=== PATIENT | female | born 1975 | race Caucasian/White ===

== ENCOUNTER → 2019-12-31 09:22 | Outpatient (BNVA) | payer OTHER, SELFPAY | PROVIDERS: PCP Internal Medicine; Referring Provider Internal Medicine; Visit Provider Advanced Practice Midwife | DX: Z76.89 Persons encountering health services in other specified circumstances (principal) ==

== ENCOUNTER 2020-02-20 14:33 | Outpatient (REF) | payer OTHER, SELFPAY | END 2020-02-20 14:34 | disposition home or self-care (01) | LOC: HO.LAB 14:33 | PROVIDERS: Visit Provider Internal Medicine | DX: Z20.828 Contact with and (suspected) exposure to other viral communicable diseases (principal) | CPT/HCPCS: C9803; U0003 ==

== ENCOUNTER 2020-03-20 09:45 | Outpatient (REF) | payer OTHER, SELFPAY ==
--- NOTE | 2020-03-20 09:51 | MM_ITS ---
EXAMINATION: MM SCREENING DIGITAL BREAST TOMOSYNTHESIS, BILATERAL CLINICAL INFORMATION: Screening. Asymptomatic. The lifetime risk of breast cancer based on the Tyrer-Cuzick Model is 16%. COMPARISON: Mammography: 03/15/2019, 01/23/2018, 07/18/2017, 03/02/2016 TECHNIQUE: Digital breast tomosynthesis is performed in both the craniocaudal and mediolateral oblique views along with computer-aided detection (CAD). Synthesized 2D images are generated from the tomosynthesis. FINDINGS: The breasts are heterogeneously dense, which may obscure small masses (ACR BI-RADS breast composition Category c). There is no developing density or interval mass or architectural abnormality. There are scattered calcifications left breast similar to prior studies. The bilateral axilla and skin contours are unremarkable. The right breast has punctate calcifications anterior medial aspect on CC view questionably increased versus superimposed digital processing artifact. The right breast also has punctate calcifications right breast posterior 3:00 position, possibly related to vascular calcification. Patient will be recalled for additional magnification views right breast. MM/MM tomosynthesis screening BI IMPRESSION: 1. Right: Calcifications anterior medial right breast and posterior 3:00 right breast. 2. Left: No mammographic evidence of malignancy. ASSESSMENT: BI-RADS 0: Incomplete - Need Additional Imaging Evaluation RECOMMENDATION: 1. Additional views of the right breast for 2 areas of calcification (magnification CC, magnification ML). 2. Radiology department staff will contact the patient for additional imaging. This patient's information was entered into a reminder system with a target due date for their next mammogram.
== END 2020-03-20 09:46 | disposition home or self-care (01) ==
LOC: HO.MAMMO 09:45
PROVIDERS: Visit Provider Internal Medicine
DX: Z12.31 Encounter for screening mammogram for malignant neoplasm of breast (principal)
CPT/HCPCS: 77063; 77067

== ENCOUNTER 2020-04-23 13:13 | Outpatient (REF) | payer OTHER, SELFPAY ==
--- NOTE | ~2020-04-23 | MM_ITS ---
EXAMINATION: MM DIAGNOSTIC DIGITAL MAMMOGRAPHY, RIGHT CLINICAL INFORMATION: Recall from screening for questionable increased calcifications anterior medial right breast and for calcifications posterior upper outer right breast. COMPARISON: Mammography: 03/30/2020, 03/15/2019, 01/23/2018. TECHNIQUE: Digital mammography is performed in the following views: Magnification CC, magnification ML x2. FINDINGS: The breasts are heterogeneously dense, which may obscure small masses (ACR BI-RADS breast composition Category c). The additional views show the calcifications anterior medial right breast are stable when compared with prior magnification views in 2019 and 2017. These are considered benign and without change. The calcifications posterior outer right breast were not previously under surveillance. They are uniform round and tightly grouped on CC view but without focal grouping appreciated on the ML views. This group will be reassessed again with diagnostic mammography in 6 months. Results are discussed with the patient at time of visit. MM/MM added views RT IMPRESSION: 1. Calcifications anterior medial right breast are stable when compared with prior magnification views 2019 and 2017. These are considered benign. 2. Calcifications posterior outer right breast are probably benign, no grouping appreciated on ML views. Recommend follow-up imaging in 6 months. ASSESSMENT: BI-RADS 3: Probably Benign RECOMMENDATION: Diagnostic right mammography in 6 months. This patient's information was entered into a reminder system with a target due date for their next mammogram.
== END 2020-04-23 13:14 | disposition home or self-care (01) ==
LOC: HO.MAMMO 13:13
PROVIDERS: Visit Provider Internal Medicine
DX: R92.1 Mammographic calcification found on diagnostic imaging of breast (principal)
CPT/HCPCS: 77065

== ENCOUNTER 2021-03-23 12:52 | Outpatient (REF) | payer OTHER, SELFPAY ==
--- NOTE | ~2021-03-23 | MM_ITS ---
EXAMINATION: MM DIAGNOSTIC DIGITAL BREAST TOMOSYNTHESIS, BILATERAL CLINICAL INFORMATION: Due for yearly. Probable benign calcifications posterior outer right breast for follow-up. The lifetime risk of breast cancer based on the Tyrer-Cuzick Model is 15%. COMPARISON: Mammography: 04/23/2020, 03/20/2020 (BI-RADS 0), 03/15/2019, 01/23/2018 TECHNIQUE: Digital breast tomosynthesis is performed in both the craniocaudal and mediolateral oblique views along with computer-aided detection (CAD). Synthesized 2D images are generated from the tomosynthesis. Magnification right CC x2, magnification right ML x2. FINDINGS: The breasts are heterogeneously dense, which may obscure small masses (ACR BI-RADS breast composition Category c). There are no significant masses, abnormal calcifications, or other abnormalities. Parenchymal pattern is similar to prior studies. No developing density or interval mass or architectural abnormality. There are scattered calcifications in both breasts. The calcifications for follow-up posterior outer right breast are less conspicuous, possibly decreased. No interval suspicious changes. Results are provided to the patient at time of visit by the technologist. MM/MM tomosynthesis diagnostic BI IMPRESSION: No mammographic evidence of malignancy. Probable benign calcifications posterior outer right breast left conspicuous, likely decreased. ASSESSMENT: BI-RADS 3: Probably Benign RECOMMENDATION: Diagnostic mammography at time of next annual exam, due in 12 months. This patient's information was entered into a reminder system with a target due date for their next mammogram.
== END 2021-03-23 12:53 | disposition home or self-care (01) ==
LOC: HO.MAMMO 12:52
PROVIDERS: PCP Internal Medicine; Visit Provider Internal Medicine
DX: R92.1 Mammographic calcification found on diagnostic imaging of breast (principal)
CPT/HCPCS: 77062; 77066

== ENCOUNTER 2022-03-25 13:28 | Outpatient (REF) | payer OTHER, SELFPAY ==
--- NOTE | ~2022-03-25 | MM_ITS ---
EXAMINATION: MM DIAGNOSTIC DIGITAL BREAST TOMOSYNTHESIS, BILATERAL CLINICAL INFORMATION: Due for yearly. Probable benign calcifications posterior outer right breast for follow-up. The lifetime risk of breast cancer based on the Tyrer-Cuzick Model is 15%. COMPARISON: Mammography: 03/23/2021, 04/23/2020, 03/20/2020 (BI-RADS 0), 03/15/2019, 01/23/2018 TECHNIQUE: Digital breast tomosynthesis is performed in both the craniocaudal and mediolateral oblique views along with computer-aided detection (CAD). Synthesized 2D images are generated from the tomosynthesis. Additional right magnification CC x2 and right magnification ML x3 views are obtained. FINDINGS: The breasts are heterogeneously dense, which may obscure small masses (ACR BI-RADS breast composition Category c). Breast parenchymal pattern is similar to prior exams and there is no developing density or interval mass or architectural abnormality. The axilla and skin contours are unremarkable. Again, there are scattered bilateral chronic calcifications similar to previous studies. The right breast calcifications for follow-up are stable to decreased. There is no increasing calcifications in this area or ductal distribution. Calcifications are now considered to be benign. Results are provided to the patient at time of visit by the technologist. MM/MM tomosynthesis diagnostic BI IMPRESSION: -No mammographic evidence of malignancy. -Calcifications for follow-up posterior outer right breast are stable to decreased and now considered to be benign. ASSESSMENT: BI-RADS 2: Benign RECOMMENDATION: Routine annual mammography screening. This patient's information was entered into a reminder system with a target due date for their next mammogram.
== END 2022-03-25 13:29 | disposition home or self-care (01) ==
LOC: HO.MAMMO 13:28
PROVIDERS: Visit Provider Internal Medicine
DX: R92.1 Mammographic calcification found on diagnostic imaging of breast (principal)
CPT/HCPCS: 77062; 77066

== ENCOUNTER 2022-10-28 10:54 | Outpatient (AMB) | payer OTHER, SELFPAY ==
--- NOTE | 2022-10-28 10:55 | A.OFFVIS_ITS ---
Intake Vital Signs 10/28/22 10:56 Height 5 ft Weight 138 lb BMI 26.9 BP 110/62 Intake Visit Reasons: New patient Annual Intake Note: The patient agreed to use of a medical education coordinator during this encounter. Scribed for KALPANA Kline by Merle Mac medical education coordinator, on 10/28/2022 at 11:07am EST. Reefer Engineer Required: No Information Interpreted: non-clinical & clinical Vocal Music Teacher: Vocal Music Teacher Present (Angie) Allergies No Known Allergies [No Known Allergies*] Allergy (Verified 10/28/22 10:59) Is last menstrual period known: Yes Last menstrual period: 10/14/22 Post menopausal: Yes Patient : No HPI HPI Comments History of Present Illness Details She is a premenopausal woman presenting for annual exam. Doing well with no ob gyn physician assistant concerns. She admits to eating healthy and tries to stay active with exercise. Currently sexually active. Partner has vasectomy. Regular monthly periods that are slightly spacing out. Denies vaginal itching and irritation. STD screening offered; she declines. Denies family hx of colon and ovarian cancer. Last pap smear 11/21/17. Last mammogram 03/25/22. UTD with colonoscopy; normal. 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 Female Reproductive History Menstrual Age of Menarche: 10 Duration of menses: 3-5 days Date of last menstrual period: 10/14/22 control method: other (Vasectomy) Total pregnancies: 2 Full term: 2 Number of Living Children: 2 Date of last pap smear: 11/21/17 (neg pap and hpv) Date of Mammogram: 03/25/22 (Birad 2) Physical Exam Vital Signs: Last Vital Signs BP 110/62 10/28/22 10:56 BMI result Body Mass Index 26.9 Const General: cooperative, healthy appearing, no acute distress, well developed and alert Orientation/consciousness: patient oriented x3 HEENT Head: Yes normal to inspection Eyes General: appearance normal, both eyes and all related structures Neck Neck: Yes normal visual inspection Thyroid: Thyroid normal Chest Chest palpation & inspection: normal inspection of the chest Breast/axilla inspection: normal inspection of the breasts (no puckering, dimpling, peau de orange, retraction, discharge, masses) Breast/axilla palpation: normal palpation of the breasts Resp Effort & Inspection: normal respiratory effort GI Inspection: Yes normal to inspection Palpation (GI): Soft to palpation (to palpation) Rectal Exam - Female: deferred General: Yes bladder normal to inspection External Female Exam: normal external appearance and normal appearance of the urethra Speculum Exam - Vagina: normal appearance of the vagina, normal palpation and normal vaginal discharge Speculum Exam - Cervix: normal appearance of the cervix, normal palpation and Other cervical findings present (bled with pap) Bimanual exam- vagina & uterus: normal palpation and normal palpation Bimanual Exam- Adnexa, other: normal adnexae and no masses Skin General skin exam: no rashes or lesions noted Neuro General: patient oriented x3 Cognition (Neuro): normal cognition Extrem General: Yes normal to inspection Psych Attitude: cooperative Thought process: Normal thought process present Assessment & Plan Assessment & Plan (1) Encounter for well woman exam: Code(s): Z01.419 - Encounter for gynecological examination (general) (routine) without abnormal findings Plan: Discussed: Current recommendations for pap smears per ASCCP guidelines Breast awareness and periodic self breast exams. Maintaining a healthy lifestyle including a well balanced diet and routine exercise. Perimenopause changes. Cycle patterns: when to carlos for any abnormal bleeding, <3 wks. apart or heavy, prolonged bleeding. All of her questions and concerns were addressed to the best of my ability. RTO in one year for AG. Orders: Orders Pap Smear Today Z01.419 - Encounter for gynecological examination (general) (routine) without abnormal findings Coding Level of Care Code New Pt Prev Care 40-64y(45186) Diagnoses Encounter for well woman exam Z01.419
[2022-10-28 10:56] VITALS: BP 110/62; BMI 26.9
== END 2022-10-28 11:24 | disposition home or self-care (01) ==
LOC: HO.HWS 10:54
PROVIDERS: PCP Internal Medicine; Visit Provider Advanced Practice Midwife
DX: Z01.419 Encounter for gynecological examination (general) (routine) without abnormal findings (principal)
CPT/HCPCS: 99386

== ENCOUNTER 2022-10-28 10:54 | Outpatient (REF) | payer OTHER, SELFPAY ==
[2022-11-01 20:34] LABS: HPV mRNA E6/E7 rflx Not Detected (Not Detected)
== END 2022-10-28 10:55 | disposition home or self-care (01) ==
LOC: HO.LNP 10:54
PROVIDERS: PCP Internal Medicine; Visit Provider Advanced Practice Midwife
DX: Z01.419 Encounter for gynecological examination (general) (routine) without abnormal findings (principal); Z11.51 Encounter for screening for human papillomavirus (HPV)
CPT/HCPCS: 87624; 88142

== ENCOUNTER 2023-03-21 13:57 | Outpatient (REF) | payer OTHER, SELFPAY ==
--- NOTE | ~2023-03-21 | MM_ITS ---
EXAMINATION: MM SCREENING DIGITAL BREAST TOMOSYNTHESIS, BILATERAL CLINICAL INFORMATION: Screening. Asymptomatic. COMPARISON: Mammography: This study is compared with prior exams dating back to 2019. TECHNIQUE: Digital breast tomosynthesis is performed in both the craniocaudal and mediolateral oblique views along with computer-aided detection (CAD). Synthesized 2D images are generated from the tomosynthesis. FINDINGS: The breasts are heterogeneously dense, which may obscure small masses (ACR BI-RADS breast composition Category c). There are no significant masses, abnormal calcifications, or other abnormalities. Few, bilateral, benign calcifications are present in each breast. MM/MM tomosynthesis screening BI IMPRESSION: No mammographic evidence of malignancy. ASSESSMENT: BI-RADS BI-RADS 2 - Benign Findings RECOMMENDATION: Routine annual mammography screening. 1 year F/U This examination should not preclude the clinical evaluation of a suspicious palpable abnormality. This patient's information was entered into a reminder system with a target due date for their next mammogram.
== END 2023-03-21 13:58 | disposition home or self-care (01) ==
LOC: HO.MAMMO 13:57
PROVIDERS: PCP Internal Medicine; Visit Provider Internal Medicine
DX: Z12.31 Encounter for screening mammogram for malignant neoplasm of breast (principal)
CPT/HCPCS: 77063; 77067

== ENCOUNTER → 2023-03-21 14:00 | Outpatient (BNV) | payer OTHER, SELFPAY | PROVIDERS: PCP Internal Medicine; Visit Provider Radiology Diagnostic Radiology | DX: Z12.31 Encounter for screening mammogram for malignant neoplasm of breast (principal) | CPT/HCPCS: 77063; 77067 ==

== ENCOUNTER 2023-11-24 09:04 | Outpatient (AMB) | payer OTHER, SELFPAY ==
--- NOTE | 2023-11-24 09:08 | A.OFFVIS_ITS ---
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 She is doing well with no concerns. LMP June 2023. Having hot flashes Attempting to eat a healthy diet with calcium and vitamin D and stays active with exercise. Currently sexually active. Admits to vaginal dryness and lower libido. Last pap smear; 2022. Last mammogram; 2023. Colonoscopy is UTD. Denies any family history of ovarian or colon cancer. Family history of breast cancer- maternal grandmother. 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 Reproductive History Menstrual Age of Menarche: 10 Duration of menses: 3-5 days Date of last menstrual period: 07/02/23 control method: other (vas) Total pregnancies: 2 Full term: 2 Number of Living Children: 2 Date of last pap smear: 10/28/22 (neg pap and hpv) History of abnormal pap smear: No History of STI: Yes Date of Mammogram: 03/21/23 (Birad 2) History of abnormal mammogram: No Physical Exam Vital Signs: Last Vital Signs BP 112/74 11/24/23 09:12 BMI result Body Mass Index 26.0 Assessment & Plan Assessment & Plan (1) Encounter for well woman exam with routine gynecological exam: Code(s): Z01.419 - Encounter for gynecological examination (general) (routine) without abnormal findings Category: Medical (2) Vaginal dryness: Code(s): N89.8 - Other specified noninflammatory disorders of vagina (3) Perimenopausal: Code(s): N95.1 - Menopausal and female climacteric states Plan Discussed: Current recommendations for pap smears per ASCCP guidelines. Breast awareness, periodic self breast exams and yearly mammogram. Maintain a healthy lifestyle, well balanced diet including Calcium 1,200 mg and Vitamin D 600 IU daily, and routine exercise. Contact the office with any abnormal bleeding patterns, bleeding less than 24 days apart or heavy prolonged bleeding. Menopause is diagnostic after 12 consecutive months of no menses. Self-help measures for hot flashes. Vaginal lubrication and moisturizers such as Replens products. Menopause.org information provided. Role of vaginal estrogen use. Patient to try moisturizers for now and follow up as needed. Libido concerns and related to perimenopause. Patient verbalizes understanding and agrees to the plan of care. She was given opportunity to ask questions and all questions were answered to the best of my ability. RTO in 1 year for annual headstart teacher exam. This note is constructed using voice recognition software. While every effort has been made to ensure accuracy, material control supervisor errors may have been included. Coding Level of Care Code Est Pt Prev Care 40-64y(37609) Diagnoses Encounter for well woman exam with routine gynecological exam Z01.419 Vaginal dryness N89.8 Perimenopausal N95.1
[2023-11-24 09:12] VITALS: BP 112/74; BMI 26.0
== END 2023-11-24 09:46 | disposition home or self-care (01) ==
PROVIDERS: PCP Internal Medicine; Visit Provider Advanced Practice Midwife
DX: Z01.419 Encounter for gynecological examination (general) (routine) without abnormal findings (principal); N89.8 Other specified noninflammatory disorders of vagina; N95.1 Menopausal and female climacteric states
CPT/HCPCS: 99396

== ENCOUNTER → 2023-11-24 09:04 | Outpatient (BNVA) | payer OTHER, SELFPAY | PROVIDERS: PCP Internal Medicine; Visit Provider Advanced Practice Midwife | DX: Z01.419 Encounter for gynecological examination (general) (routine) without abnormal findings (principal); N89.8 Other specified noninflammatory disorders of vagina; N95.1 Menopausal and female climacteric states | CPT/HCPCS: 99396 ==

== ENCOUNTER 2024-03-26 10:25 | Outpatient (REF) | payer OTHER, SELFPAY | END 2024-03-26 10:26 | disposition home or self-care (01) | LOC: HO.MAMMO 10:25 | PROVIDERS: PCP Internal Medicine; Visit Provider Internal Medicine | DX: Z12.31 Encounter for screening mammogram for malignant neoplasm of breast (principal) | CPT/HCPCS: 77063; 77067 ==

== ENCOUNTER → 2024-03-26 10:30 | Outpatient (BNV) | payer OTHER, SELFPAY | PROVIDERS: PCP Internal Medicine; Visit Provider Internal Medicine | DX: Z12.31 Encounter for screening mammogram for malignant neoplasm of breast (principal) | CPT/HCPCS: 77063; 77067 ==

== ENCOUNTER 2024-08-21 09:05 | Outpatient (AMB) | payer OTHER, SELFPAY ==
--- NOTE | 2024-08-21 09:07 | MHC.OFFVIS ---
Intake Visit Reasons: postmenopausal bleeding Intake Note: Per patient, bleeding began Fri heavy for 2 days. Spotting Sun-Mon, nothing as of today. Feeling crampy, bloated, irritable. Form Setter Helper: Form Setter Helper Present (Brigitte) Accompanied by: Self / Same As Patient Allergies No Known Allergies [No Known Allergies*] Allergy (Verified 11/24/23 09:14) Is last menstrual period known: Yes Last menstrual period: 06/30/23 Post menopausal: No Patient : No HPI Comments Details: Patient is here today with concerns of postmenopausal bleeding onset was Tuesday. Still lightly bleeding today. She admits to mild cramping, breast tenderness, bloating, irritable and feels something is off. She is concerned she has a good friend with recent diagnosis of uterine cancer. LMP was 14 months ago prior to the episode of bleeding this week. 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 History Menstrual Age of Menarche: 10 Duration of menses: 3-5 days Date of last menstrual period: 06/30/23 control method: none Review of Systems Const All systems reviewed & are unremarkable except as noted in HPI and below Physical Exam Const General: cooperative, healthy appearing and no acute distress Orientation/consciousness: patient oriented x3 GI Inspection: Yes normal to inspection Palpation (GI): Soft to palpation and Other GI palpation findings present (Nontender) Rectal Exam - Female: visual inspection normal General: Yes bladder normal to palpation External Female Exam: normal appearance of the urethra Speculum Exam - Vagina: normal appearance of the vagina, normal palpation, normal vaginal discharge and vaginal bleeding Speculum Exam - Cervix: normal appearance of the cervix and normal palpation Bimanual exam- vagina & uterus: normal bimanual exam, normal palpation, uterine size normal, bladder normal to palpation, normal palpation, uterine shape normal and non-tender Bimanual Exam- Adnexa, other: normal adnexae OB/external & speculum: vaginal bleeding Neuro General: patient oriented x3 Assessment & Plan Assessment & Plan (1) Post-menopausal bleeding: Code(s): N95.0 - Postmenopausal bleeding Category: Medical Plan Discuss workup for postmenopausal bleeding to include pelvic ultrasound, GC chlamydia, endometrial biopsy. Purpose of endometrial biopsy is to rule out any abnormal atypical cells, precancer or cancerous of the uterus. Preprocedure planning discussed advised to have something to eat and drink and take ibuprofen 3 tablets if no contraindications per manufacture's recommendations 1 hour before her procedure. The patient expressed understanding and agreement with the plan of care. All of her questions and concerns were addressed to the best of my ability. This note is constructed using voice recognition software. While every effort has been made to ensure accuracy, professional engineer errors may have been included. Orders: Orders Follicle Stimulating Hormone Today R23.2 - [place] Lutenizing Hormone Today N95.0 - Postmenopausal bleeding US pelvic and transvaginal Today Z78.0 - Asymptomatic menopausal state HCG Quantitative Today N93.9 - Abnormal uterine and vaginal bleeding, unspecified Coding Level of Care Code Est Pt Level 3 (65729) Diagnoses Post-menopausal bleeding N95.0
--- OUTSIDE RECORDS SUMMARY | 2024-08-21 09:48 | XMS_ITS | Clinical Summary ---
Author Organization [facility] [address] [place] [address] [place] [address] Phone Care Team Providers Care Hot Mill Roller Name Role Phone Loreto Espitia MD Primary Care Provider [phone] Allergies Active Allergy Reactions Criticality Noted Date Comments Bee Venom Protein (Honey Bee) Anaphylaxis High 03/22 Medications LORazepam (ATIVAN) 0.5 mg tablet TAKE 1 TABLET BY MOUTH AT BEDTIME NEEDED FOR INSOMNIA 11/25/2020 Active citalopram (CeleXA) 20 mg tablet Take 1 tablet (20 mg total) by mouth 1 (one) time each day. 02/18/2020 Active epinephrine (EPIPEN 2-MARK INJ) Inject into the muscle. Active Active Problems Problem Noted Date Diagnosed Date Overweight (BMI 25.0-29.9) 01/02/2024 Cancer of skin, squamous cell 07/02/2021 Insomnia 04/21/2017 Anxiety and depression 03/22/2017 Immunizations Name Administration Dates Next Due Tdap Tetanus diptheria acell ular pertussis (Boostrix; Adacel) 7yo and older 06/28/2017 Surgical History Surgery Date Site/Laterality Comments OTHER SURGICAL HISTORY 03/2021 Bilateral PROCEDURE: MAMMOGRAM, SCREENING, BOTH BREASTS COLONOSCOPY 12/10/2021 PROCEDURE: HISTORICAL COLONOSCOPY; COMMENT: negative Medical History Medical History Date Comments Anxiety and depression DX:Anxiet y and depression Insomnia 04/21/2017 DX:Insomnia Cancer of skin, squamous cell 07/02/2021 DX :Cancer of skin, squamous cell Family History Medical History Relation Name Comments Cirrhosis Brother x 1 +ETOH Esophageal cancer Father CAD; +smok er Breast cancer Maternal Grandmother ?age?l aterality Hyperlipidemia Mother Relation Name Status Comments Brother x 1 Alive Father Maternal Grandfather Maternal Grandmother Mother Alive Paternal Grandfather Paternal Grandmother Sister x 2 Alive Social History Tobacco Use Types Packs/Day Years Used Date Smoking Tobacco: Former Smokeless Tobacco: Never Alcohol Use Standard Drinks/Week Comments Not Currently 0 (1 standard drink = 0.6 oz pur e alcohol) Comments Unknown Sex and Gender Information Value Date Recorded Sex Assigned at Not on file Legal Sex Female 9:34 AM EST Gender Identity Not on file Sexual Orientation Not on file Obstetrics History Last Filed Vital Signs Vital Sign Reading Time Taken Comments Blood Pressure 98/78 01/02/2024 1:33 PM EDT Pulse 74 01/02/2024 1:33 PM EDT Temperature - - Respiratory Rate - - Oxygen Saturation - - Inhaled Oxygen Concentration - - Weight 61.7 kg (136 lb) 01/02/2024 1:33 PM EDT Height 152.4 cm (5') 01/02/2024 1:33 PM EDT Body Mass Index 26.56 01/02/2024 1:33 PM EDT Plan of Treatment Upcoming Encounters Date Type Department Care Team (Late st Contact Info) Description 01/07/2025 9:00 AM EDT Office Visit Adult Medicine [address] [address] Loreto Espitia MD [address] [place] [phone] Health Maintenance Due Date Last Done Comments Breast Cancer Screening 1975 Hepatitis B Vaccines (1 of 3 - 19+ 3-dose series) 1992 Pneumococcal Vaccine: 50+ Years (1 of 2 - PCV) 1992 Pneumococcal Vaccine: Pediatrics (0 to 5 Years) and At-Risk Patients (6 to 64 Years) (1 of 2 - PCV) 1992 Zoster Vaccines (1 of 2) 1992 Cervical Cancer Screening: P ap Smear 1994 Depression Screening 02/20/2022 HIV Screening 02/20/2022 Social Influencers of Health Screening 02/20/2022 COVID-19 Vaccine (4 - 2023-2 5 season) 2023 03/27/2021, 05/23/2020, 05/03/2020 Influenza Vaccine (Season Ended) 2024 DTaP,Tdap,and Td Vaccines (2 - Td or Tdap) 06/29/2027 06/28/2017 Cholesterol Screening (Lipid Panel) 01/04/2029 01/05/2024, 01/05/2024 Colorectal Cancer Screening: Colonoscopy 12/12/2031 12/10/2021 Hepatitis C Screening Completed 01/05/2024 HIB Vaccines Aged Out No longer eligi ble based on patient's age to complete this topic HPV Vaccines Aged Out No longer eligi ble based on patient's age to complete this topic Hepatitis A Vaccines Aged Out No long er eligible based on patient's age to complete this topic IPV Vaccines Aged Out No longer eligi ble based on patient's age to complete this topic MMR Vaccines Aged Out No longer eligi ble based on patient's age to complete this topic Meningococcal ACWY Vaccine Aged Out N o longer eligible based on patient's age to complete this topic Meningococcal B Vaccine Aged Out No l onger eligible based on patient's age to complete this topic RSV Immunization Patients Under 20 months Aged Out No longer eligible b ased on patient's age to complete this topic Varicella Vaccines Aged Out No longer eligible based on patient's age to complete this topic Procedures Procedure Name Priority Date/Time Associated Diagnosis Comments HEPATITIS C SCREENING Routine 01/05/2024 LIPID PANEL Routine 01/05/2024 COLONOSCOPY Routine 12/10/2021 from Last 3 Months or Most Recently Relevant to Health Maintenance Results * Hepatitis C Screening (01/05/2024) Pathologist [facility] Hepatitis C Screening abstracted us Historical Provider HEALTH MAINTENANCE Final Result * (ABNORMAL) Lipid panel (01/05/2024) LDL/HDL Ratio 2 0 - 4 Triglycerides 39 0 - 150 mg/dL Cholesterol 198 0 - 200 mg/dL HDL 90 >=40 mg/dL LDL Cholesterol 101(A) 0 - 100 mg/dL Blood Venous blood specimen / Unknown Historical Provider LAB BLOOD ORDERABLES Afia l Result * Colonoscopy (12/10/2021) Colonoscopy abstracted, no interpretation Anatomical Region Laterality Modality Other Historical Provider HEALTH MAINTENANCE Final Result from Last 3 Months or Most Recently Relevant to Health Maintenance Care Teams Hot Mill Roller Relationship Specialty Start Date End Date Loreto Espitia MD [address] [place] [address] PCP - General Internal Medicine 03/16/21
== END 2024-08-21 09:35 | disposition home or self-care (01) ==
LOC: HO.HWS 09:06
PROVIDERS: PCP Internal Medicine; Visit Provider Advanced Practice Midwife
DX: N95.0 Postmenopausal bleeding (principal)
CPT/HCPCS: 99213

== ENCOUNTER 2024-08-21 09:05 | Outpatient (REF) | payer OTHER, SELFPAY ==
[2024-08-21 10:24] LABS: HCG Quantitative < 2 mIU/mL
[2024-08-21 17:14] LABS: Bacterial Vaginosis PCR NEGATIVE (Negative); Candida Group PCR NOT DETECTED (Not Detect); Candida glab krusei PCR NOT DETECTED (Not Detect); Trichomonas vaginalis PCR NOT DETECTED (Not Detect)
[2024-08-21 17:46] LABS: CT PCR NOT DETECTED (Not Detect.); NG PCR NOT DETECTED (Not Detect.)
[2024-08-22 04:38] LABS: Follicle Stimulating Hormone 69.9 mIU/mL; Lutenizing Hormone 24.2 mIU/mL
== END 2024-08-21 09:06 | disposition home or self-care (01) ==
LOC: HO.LAB 09:05
PROVIDERS: PCP Internal Medicine; Visit Provider Advanced Practice Midwife
DX: N93.9 Abnormal uterine and vaginal bleeding, unspecified (principal); R23.2 Flushing; N95.0 Postmenopausal bleeding; Z11.3 Encounter for screening for infections with a predominantly sexual mode of transmission
CPT/HCPCS: 36415; 81515; 83001; 83002; 84702; 87491; 87591; 99212

== ENCOUNTER 2024-08-21 10:10 | Outpatient (REF) | payer OTHER, SELFPAY | END 2024-08-21 10:11 | disposition home or self-care (01) | LOC: HO.LNP 10:10 | PROVIDERS: Visit Provider Advanced Practice Midwife | DX: Z13.89 Encounter for screening for other disorder (principal) ==

== ENCOUNTER 2024-08-21 15:04 | Outpatient (REF) | payer OTHER, SELFPAY ==
--- NOTE | ~2024-08-21 | US_ITS ---
EXAMINATION: US PELVIS CLINICAL INFORMATION: Postmenopausal bleeding COMPARISON: None available. TECHNIQUE: Ultrasound of the pelvis is performed using both transabdominal and transvaginal transducers along with Doppler. Transvaginal imaging is performed due to inadequate visualization transabdominally. FINDINGS: Uterus: The uterus is anteverted and measures 7.9 x 3.5 x 4.1 cm. The double wall endometrial thickness is 0.87 cm. The uterus is smooth in contour and has normal myometrial echogenicity. No visible fibroid. Adnexa: Both ovaries are visualized. There is normal color flow to the adnexa. There is no ovarian torsion. There is no pelvic ascites or fluid collection. Right ovary measures 1.7 x 1.0, 1.2 cm. Small ovarian follicles are noted. Previously right ovary measured 2.2 x 1.3 x 1.3 CM. Left ovary measures 2.1 x 1.3 x 1.5 cm. Small ovarian follicles are noted. Previously left ovary measured 2.8 x 1.1 x 2.8 CM . There is no fluid in cul-de-sac. US/US pelvic and transvaginal IMPRESSION: Mild thickening of the endometrium measuring 0.87 cm. Uterus is unremarkable. Small bilateral simple ovarian follicles. No free fluid. Electronically signed by: John Jack MD 08/21/2024 03:44 PM EDT
--- OUTSIDE RECORDS SUMMARY | 2024-08-21 18:11 | XMS_ITS | Clinical Summary ---
Author Organization [facility] [address] [place] [address] [place] [address] Phone Care Team Providers Care Fretted Instrument Maker Hand Name Role Phone Loreto Espitia MD Primary Care Provider [phone] Allergies Active Allergy Reactions Criticality Noted Date [...] 9:00 AM EDT Office Visit Adult Medicine [address] [phone] Loreto Espitia MD [address] [place] [address] Health Maintenance Due Date Last Done Comments [...] Results * Hepatitis C Screening (01/05/2024) Pathologist [facility] Hepatitis C Screening abstracted us Historical Provider [...] Recently Relevant to Health Maintenance Care Teams Fretted Instrument Maker Hand Relationship Specialty Start Date End Date Loreto Espitia MD [address] [place] [phone] PCP - General Internal Medicine 03/16/21
== END 2024-08-21 15:05 | disposition home or self-care (01) ==
LOC: HO.HMGCX 15:04
PROVIDERS: PCP Internal Medicine; Visit Provider Advanced Practice Midwife
DX: Z78.0 Asymptomatic menopausal state (principal)
CPT/HCPCS: 76830; 76856

== ENCOUNTER → 2024-08-21 15:07 | Outpatient (BNV) | payer OTHER, SELFPAY | PROVIDERS: PCP Internal Medicine; Visit Provider Radiology Diagnostic Radiology | DX: N83.01 Follicular cyst of right ovary (principal); N83.02 Follicular cyst of left ovary | CPT/HCPCS: 76830; 76856 ==

== ENCOUNTER 2024-09-04 08:03 | Outpatient (AMB) | payer OTHER, SELFPAY ==
[2024-09-04 08:07] VITALS: BP 114/70; BMI 26.0
--- NOTE | 2024-09-04 08:07 | A.OFFVIS_ITS ---
Vital Signs 09/04/24 08:07 Height 5 ft Weight 133 lb BMI 26.0 BP 114/70 Intake Visit Reasons: EMB Flexographic Press Helper: Flexographic Press Helper Present (Angie) Allergies No Known Allergies (No Known Allergies*) Allergy (Verified 09/04/24 08:07) HPI Comments Details: Patient is here today for an endometrial biopsy and follow up ultrasound. History of irregular bleeding. FSH-69.9, LH-24.4. Ultrasound revealed endometrial lining 0.87cm. 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 Reproductive History Menstrual Age of Menarche: 10 Review of Systems Const All systems reviewed & are unremarkable except as noted in HPI and below Physical Exam Vital Signs: Last Vital Signs BP 114/70 09/04/24 08:07 BMI result Body Mass Index 26.0 Const General: cooperative, healthy appearing and no acute distress Orientation/consciousness: patient oriented x3 GI Inspection: Yes normal to inspection Palpation (GI): Soft to palpation and Other GI palpation findings present (Nontender) Rectal Exam - Female: visual inspection normal General: Yes bladder normal to palpation External Female Exam: normal appearance of the urethra Speculum Exam - Vagina: normal appearance of the vagina, normal palpation and normal vaginal discharge Speculum Exam - Cervix: normal appearance of the cervix and normal palpation Bimanual exam- vagina & uterus: normal bimanual exam, normal palpation, uterine size normal, bladder normal to palpation, normal palpation, uterine shape normal and non-tender Bimanual Exam- Adnexa, other: normal adnexae Neuro General: patient oriented x3 Office Procedures Endometrial Biopsy Details: The patient is here today for an endometrial biopsy due to AUB to rule out any pathology including atypical, hyperplasia or cancer cells of the uterus. She was counseled regarding anticipatory guidance for the procedure including the risks for pain, infection, bleeding, perforation, potential injury to the tissues may include the cervix, uterus, tubes, bladder and bowels. These injuries may include further treatment and evaluation including surgery, blood transfusions, antibiotics, hospitalizations and anesthesia. Permanent injury and scarring can occur. She was consented for the procedure, and the consent forms were signed. She is agreeable to have the procedure today. All questions were answered. Endometrial Biopsy Procedure: The patient was placed in the dorsal lithotomy position and a sterile speculum inserted. Using aseptic technique for the procedure. The cervix was cleansed with Betadine x 3 swabs. A single toothed tenaculum was placed on the cervix for stabilization and the uterus was sounded to 7 cm with a 4mm pipelle, and tissue sample obtained. Minimal bleeding was observed. The tissue sample was placed in formalin in a patient labeled container by staff assisting and sent to the pathology department for processing and interpretation. The patient tolerate the procedure well and was in good condition when leaving the department. Endometrial Biopsy Post Procedure Care: Nothing in the vagina including: tampons, douching or intimacy until all the bleeding has subsided. There may be some post procedure bleeding for several days, this bleeding is usually light and may turn to a light brown or pink color. Mild cramps may occurs. Nothing in the vaginal including: tampons, douching, or intimacy until all the bleeding has subsided. You may take an over the counter mild analgesic such as Tylenol or Advil (if no allergies) per the manufactures recommendation on dosing, frequency, and follow the directions completely. Call the office if any: fever (over 100.4), flu like symptoms, abdominal pain (worse than cramping), foul smelling, infected appearing vaginal discharge, or heavy bleeding. Return to the office in 2 weeks for results and plan of care. This note is constructed using voice recognition software. While every effort has been made to ensure accuracy, patroller errors may have been included. [id number] Biopsy Results Reviewed Results Reviewed: [facility] [address] [place] [address] Ultrasound Report Signed Patient: Nallely Haney MR#: [id number] : 1975 Acct:[id number] Age/Sex: 49 / F ADM Date: 08/21/24 [facility] Att[facility] Dr: Alison Levin KERI Ordering Physician: Alison Levin CNM Date of Service: 08/21/24 Procedure(s): US pelvic and transvaginal Accession Number(s): [id number] cc: Alison Levin CNM; Loreto Espitia MD~ EXAMINATION: US PELVIS CLINICAL INFORMATION: Postmenopausal bleeding COMPARISON: None available. TECHNIQUE: Ultrasound of the pelvis is performed using both transabdominal and transvaginal transducers along with Doppler. Transvaginal imaging is performed due to inadequate visualization transabdominally. FINDINGS: Uterus: The uterus is anteverted and measures 7.9 x 3.5 x 4.1 cm. The double wall endometrial thickness is 0.87 cm. The uterus is smooth in contour and has normal myometrial echogenicity. No visible fibroid. Adnexa: Both ovaries are visualized. There is normal color flow to the adnexa. There is no ovarian torsion. There is no pelvic ascites or fluid collection. Right ovary measures 1.7 x 1.0, 1.2 cm. Small ovarian follicles are noted. Previously right ovary measured 2.2 x 1.3 x 1.3 CM. Left ovary measures 2.1 x 1.3 x 1.5 cm. Small ovarian follicles are noted. Previously left ovary measured 2.8 x 1.1 x 2.8 CM . There is no fluid in cul-de-sac. US/US pelvic and transvaginal IMPRESSION: Mild thickening of the endometrium measuring 0.87 cm. Uterus is unremarkable. Small bilateral simple ovarian follicles. No free fluid. Electronically signed by: John Jack MD 08/21/2024 03:44 PM EDT Dictated By: John Jack MD Signed By: <Electronically signed by John Jack MD in OV> 08/21/24 1544 DD/ 1514 TD/TT: 08/21/24 1531 Wood Gang Sawyer: SURAJ Assessment & Plan Assessment & Plan (1) Post-menopausal bleeding: Code(s): N95.0 - Postmenopausal bleeding Category: Medical Plan Discussed ultrasound and lab findings. Reviewed menopausal definition. Menopause verses perimenopause. Menopause is definitive of 1 year of no menses or 12 months in succession. Report any abnormal uterine bleeding in example prolonged episodes, or short intervals less than 24 days. Follow up for EMB results. See procedure notes. The patient expressed understanding and agreement with the plan of care. All of her questions and concerns were addressed to the best of my ability. This note is constructed using voice recognition software. While every effort has been made to ensure accuracy, patroller errors may have been included. Orders: Orders Surgical Today N95.0 - Postmenopausal bleeding Coding Level of Care Code Procedure Only Diagnoses Post-menopausal bleeding N95.0 CPT Codes Endometrial Biopsy - CPT: 95535-[id number] Biopsy ([id number])
--- OUTSIDE RECORDS SUMMARY | 2024-09-04 08:08 | XMS_ITS | Clinical Summary ---
Author Organization [facility] [address] [place] [address] [place] [address] Phone Care Team Providers Care Ground Layer Name Role Phone Loreto Espitia MD Primary Care Provider [phone] Allergies Active Allergy Reactions Criticality Noted Date [...] 9:00 AM EDT Office Visit Adult Medicine [address] [phone] Loreto Espitia MD [address] [place] [address] Health Maintenance Due Date Last Done Comments [...] Results * Hepatitis C Screening (01/05/2024) Pathologist [facility] Hepatitis C Screening abstracted us Historical Provider [...] Recently Relevant to Health Maintenance Care Teams Ground Layer Relationship Specialty Start Date End Date Loreto Espitia MD [address] [place] [phone] PCP - General Internal Medicine 03/16/21
== END 2024-09-04 09:55 | disposition home or self-care (01) ==
LOC: HO.HWS 08:03
PROVIDERS: PCP Internal Medicine; Visit Provider Advanced Practice Midwife
DX: N95.0 Postmenopausal bleeding (principal)
CPT/HCPCS: 58100

== ENCOUNTER 2024-09-04 08:03 | Outpatient (REF) | payer OTHER, SELFPAY | END 2024-09-04 08:04 | disposition home or self-care (01) | LOC: HO.LNP 08:03 | PROVIDERS: PCP Internal Medicine; Visit Provider Advanced Practice Midwife | DX: N95.0 Postmenopausal bleeding (principal) | CPT/HCPCS: 58100; 88305 ==

== ENCOUNTER 2024-09-25 10:01 | Outpatient (AMB) | payer OTHER, SELFPAY ==
--- NOTE | 2024-09-25 10:06 | MHC.OFFVIS ---
Intake Visit Reasons: emb results Supervisor Statement Clerks: Supervisor Statement Clerks Present Accompanied by: Self / Same As Patient Allergies No Known Allergies (No Known Allergies*) Allergy (Verified 09/25/24 10:10) Is last menstrual period known: Yes HPI Comments Details: Patient is here today for EMB results. History of postmenopausal bleeding, has had additional bleeding since her EMB. 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 Menstrual Age of Menarche: 10 Review of Systems Const All systems reviewed & are unremarkable except as noted in HPI and below Endo Reports no additional complaints Physical Exam Const General: cooperative, healthy appearing and no acute distress Psych Appearance: well kempt Attitude: cooperative Thought process: Normal thought process present Results Reviewed Results Reviewed: Surgical Pathology [id number] Name: Nallely Haney Age/Sex: 49/F Attending: Alison Levin CNM : 1975 Submitted by: Alison Levin CNM Copies to: Loreto Espitia MD MR #: [id number] Status: DEP REF Collected: 09/04/24 Location: [facility] Received: 09/04/24 Diagnosis Endometrium, biopsy: Benign proliferative endometrium with focal benign endocervical glandular epithelium; no atypia or carcinoma. Clinical History PMB Microscopic Description Microscopic sections reviewed. Material Received Endometrial biopsy Gross Description Received in formalin labeled ?EMB? is a 1.2 x 1.2 x 0.45 cm aggregate of multiple tubular cast fragments of jimenez-pink tissue, mucus and blood, submitted in toto in a cassette labeled A. CEDS Copies To Alison Levin CNM [facility] [address] [place] [address] [address] [place] [address] Loreto Espitia MD [address] [address] NOTE: Unless otherwise stated, all tissue is formalin-fixed and paraffin-embedded. Some or all of the immunohistochemical tests reported herein may have been developed and their performance characteristics determined by [facility]. They have not been cleared or approved by the U.S. Food and Drug Administration (FDA). However, the FDA has determined that such clearance or approval is not necessary. This laboratory is certified under the Clinical Laboratory Improvement Amendments of 1988 (CLIA) as qualified to perform high complexity clinical laboratory testing. Patient: Nallely Haney Age/Sex: 49/F MR#: [id number] Page 1 of 2 Assessment & Plan Assessment & Plan (1) Post-menopausal bleeding: Code(s): N95.0 - Postmenopausal bleeding Category: Medical Plan: Discussed: Ultrasound findings and endometrial biopsy results-benign proliferative, no atypia or cancer. (2) Thickened endometrium: Code(s): R93.89 - Abnormal findings on diagnostic imaging of other specified body structures Plan Reviewed anatomy and normal lining thickness for postmenopausal. Recommended Mirena IUD for therapeutics, and biopsy every 3-6 months for 1 year. Mirena booklet dispensed for her to review, Mirena will be valid for 5 years and then removed. If additional bleeding occurs with Mirena IUD additional biopsies may need to be considered in the future. The patient expressed understanding and agreement with the plan of care. All of her questions and concerns were addressed to the best of my ability. Patient will schedule her IUD insert appointment, pre procedure planning reviewed including eating and drinking and taking ibuprofen 3 tablets if no contraindications per manufacture's recommendations 1 hour before her appointment time. Reviewed importance of self-breast exam and to report any breast lump MATIAS for further evaluation due to certain breast cancers congruent aggressively with the use of hormones. Current mammogram up-to-date March 2024 BI-RADS 1. The patient expressed understanding and agreement with the plan of care. All of her questions and concerns were addressed to the best of my ability. Coding Level of Care Code Est Pt Level 3 (05344) Diagnoses Post-menopausal bleeding N95.0 Thickened endometrium R93.89
--- OUTSIDE RECORDS SUMMARY | 2024-09-25 10:57 | XMS_ITS | Clinical Summary ---
Author Organization [facility] [address] [place] [address] [place] [address] Phone Care Team Providers Care Licensed Funeral Director Name Role Phone Loreto Espitia MD Primary Care Provider [phone] Allergies Active Allergy Reactions Criticality Noted Date [...] 9:00 AM EDT Office Visit Adult Medicine [address] [address] Loreto Espitia MD [address] [place] [address] Health Maintenance Due Date Last Done Comments Breast Cancer Screening 1975 Hepatitis B Vaccines (1 of 3 - 19+ 3-dose series) 1992 Pneumococcal Vaccine: 50+ Years (1 of 2 - PCV) 1992 Zoster Vaccines (1 of 2) 1992 Cervical Cancer Screening: P ap Smear 1994 Depression Screening 02/20/2022 HIV Screening 02/20/2022 Social Influencers of Health Screening 02/20/2022 COVID-19 Vaccine (2023-2 5 season) 2023 03/27/2021, 05/23/2020, 05/03/2020 Influenza Vaccine (#1) 2024 DTaP,Tdap,and Td Vaccines (2 - Td [...] Maintenance Results * Hepatitis C Screening (01/05/2024) Hepatitis C Screening abstracted us Historical Provider HEALTH MAINTENANCE Final Result * (ABNORMAL) Lipid panel (01/05/2024) LDL/HDL Ratio 2 0 - 4 Triglycerides 39 0 - 150 mg/dL Cholesterol 198 0 - 200 mg/dL HDL 90 >=40 mg/dL LDL Cholesterol 101(A) 0 - 100 mg/dL Blood Venous blood specimen / Unknown us Historical Provider LAB BLOOD ORDERABLES Afia l Result * Colonoscopy (12/10/2021) Colonoscopy abstracted, no interpretation Anatomical Region Laterality Modality Other us Historical Provider HEALTH MAINTENANCE Final Result from Last 3 Months or Most Recently Relevant to Health Maintenance Care Teams Licensed Funeral Director Relationship Specialty Start Date End Date Loreto Espitia MD [address] [place] [phone] PCP - General Internal Medicine 03/16/21
== END 2024-09-25 10:22 | disposition home or self-care (01) ==
LOC: HO.HWS 10:02
PROVIDERS: PCP Internal Medicine; Visit Provider Advanced Practice Midwife
DX: N95.0 Postmenopausal bleeding (principal); R93.89 Abnormal findings on diagnostic imaging of other specified body structures
CPT/HCPCS: 99213

== ENCOUNTER → 2024-09-25 10:01 | Outpatient (BNVA) | payer OTHER, SELFPAY | PROVIDERS: PCP Internal Medicine; Visit Provider Advanced Practice Midwife | DX: Z71.2 Person consulting for explanation of examination or test findings (principal); N95.0 Postmenopausal bleeding; R93.89 Abnormal findings on diagnostic imaging of other specified body structures | CPT/HCPCS: 99212 ==

== ENCOUNTER 2024-10-09 08:06 | Outpatient (AMB) | payer OTHER, SELFPAY ==
--- OUTSIDE RECORDS SUMMARY | 2024-10-09 08:10 | XMS_ITS | Clinical Summary ---
Author Organization [facility] [address] [place] [address] [place] [address] Phone Care Team Providers Care Media Monitor Name Role Phone Loreto Espitia MD Primary Care Provider [phone] Allergies Active Allergy Reactions Criticality Noted Date [...] 9:00 AM EDT Office Visit Adult Medicine [address] [address] Loreto Espitia MD [address] [place] [address] Health Maintenance Due Date Last Done Comments Breast Cancer Screening 1975 Hepatitis B Vaccines (1 of 3 - 19+ 3-dose series) 1992 Zoster Vaccines (1 of 2) 1992 Cervical Cancer Screening: P ap Smear 1994 HIV Screening 02/20/2022 Social Influencers of Health Screening 02/20/2022 Pneumococcal Vaccine: 50+ Years (1 of 1 - PCV) 07/20/2023 COVID-19 Vaccine (2023-2 5 season) 2023 03/27/2021, 05/23/2020, 05/03/2020 Depression Screening 03/14/2024 Influenza Vaccine (#1) 2024 DTaP,Tdap,and Td Vaccines [...] Recently Relevant to Health Maintenance Care Teams Media Monitor Relationship Specialty Start Date End Date Loreto Espitia MD [address] [place] [phone] PCP - General Internal Medicine 03/16/21
--- OUTSIDE RECORDS SUMMARY | 2024-10-09 08:10 | XMS_ITS ---
Author Name [facility] Organization Unknown Care Team Organization Name Specialty Phone Email Start Date End Da te [facility] Loreto Espitia Primary Care 01/19/2022 4
--- NOTE | 2024-10-09 08:13 | A.OFFVIS_ITS ---
Intake Visit Reasons: IUD insertion Quantitative Strategy Analyst Required: No Allergies No Known Allergies (No Known Allergies*) Allergy (Verified 10/09/24 08:14) Medication List - Last Reconciled 10/09/24 by Chantale Jimenez LPN citalopram 20 mg PO DAILY lorazepam 0.5 mg PO BEDTIME PRN Is last menstrual period known: Yes Post menopausal: Yes Patient : No HPI Comments Details: Patient is here today for a follow up endometrial biopsy results. History of postmenopausal bleeding (amenorrhea for 14 months), elevated lab work, thickened endometrium, endometrial results revealed benign proliferative endometrium, no atypia or carcinoma. 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 Reproductive History Menstrual Age of Menarche: 10 Menopause type: natural Date of menopause: 09/24/19 Total pregnancies: 2 Number of Living Children: 2 History of abnormal pap smear: No History of STI: No Review of Systems Const All systems reviewed & are unremarkable except as noted in HPI and below Physical Exam Const General: cooperative, healthy appearing and no acute distress Orientation/consciousness: patient oriented x3 GI Inspection: Yes normal to inspection Palpation (GI): Soft to palpation and Other GI palpation findings present (Nontender) Rectal Exam - Female: visual inspection normal General: Yes bladder normal to palpation External Female Exam: normal appearance of the urethra Speculum Exam - Vagina: normal appearance of the vagina, normal palpation and normal vaginal discharge Speculum Exam - Cervix: normal appearance of the cervix and normal palpation Bimanual exam- vagina & uterus: normal bimanual exam, normal palpation, uterine size normal, bladder normal to palpation, normal palpation, uterine shape normal and non-tender Bimanual Exam- Adnexa, other: normal adnexae Neuro General: patient oriented x3 Office Procedures IUD Insert/Removal Details Details: The patient is here today for a Mirena IUD insertion, history of postmenopausal bleeding with proliferative benign endometrium. She was counseled on the side effects including: menstrual cycle changes, pain, infection, bleeding, or expulsion. Risks of injury to the vagina, cervix, uterus, tubes, ovaries, bowel, bladder, and any adjacent tissue, resulting in nerve damage, scarring, and pain. Risks complications for the procedure that may require other test including ultrasounds, Xray, CT or MRI scan, surgery, anesthesia, blood transfusion. A urine test was completed and was negative. She was consented for the IUD insertion and has signed the consent form. All questions were answered. IUD Insertion: The patient was placed in the dorsal lithotomy position and a sterile speculum was inserted. The procedure was completed under aseptic technique. The cervix and vagina were cleansed with a Betadine solution x 3 swabs. A single toothed tenaculum was applied to the cervix for stabilization, and the uterus was sounded to cm. The device was inserted and released with a gentle motion. Bleeding from the tenaculum sites and the procedure were minimal. The strings were trimmed to 3cm. All of the equipment was removed and the bimanual was normal, no tip was palpable at the cervical os. The patient tolerated the procedure well and left the office in good condition. Post IUD Insertion Care: There may be some post insertion bleeding for several days that is usually light and can turn to a light brown or pink in color. Mild cramping may occur. Nothing in the vagina including: tampons, douching or intimacy for several days. You may take an over the counter mild analgesia like Tylenol or Advil (if no allergies), per the manufacturers recommendations on dosing and frequency. Follow the directions completely. Call the office if any: fever (over 100.4), flu like symptoms, abdominal pain, worsening cramping not resolved with over the counter medications, foul smelling vaginal odor, signs of infected appearing discharge, or heavy bleeding. Use a condom for a back up method if indicated for 7 days. Always use a condom for STI prevention; IUD's are not protective against STD's. Return to the office in 4-6 weeks for IUD recheck. This note is constructed using voice recognition software. While every effort has been made to ensure accuracy, insurance sales representative errors may have been included. [id number] Insertion Procedure code (CPT) selection complete Results Reviewed Results Reviewed: Surgical Pathology [id number] Name: Nallely Haney Age/Sex: 49/F Attending: Alison Levin CNM : 1975 Submitted by: Alison Levin CNM Copies to: Loreto Espitia MD MR #: [id number] Status: DEP REF Collected: 09/04/24 Location: [facility] Received: 09/04/24 Diagnosis Endometrium, biopsy: Benign proliferative endometrium with focal benign endocervical glandular epithelium; no atypia or carcinoma. Clinical History PMB Microscopic Description Microscopic sections reviewed. Material Received Endometrial biopsy Gross Description Received in formalin labeled ?EMB? is a 1.2 x 1.2 x 0.45 cm aggregate of multiple tubular cast fragments of jimenez-pink tissue, mucus and blood, submitted in toto in a cassette labeled A. CEDS Copies To Alison Levin CNM [facility] [address] [place], [place] [id number] Loreto Espitia MD [facility]. [address] [address] NOTE: Unless otherwise stated, all tissue is formalin-fixed and paraffin- embedded. Some or all of the immunohistochemical tests reported herein may have been developed and their performance characteristics determined by [facility]. They have not been cleared or approved by the U.S. Food and Drug Administration (FDA). However, the FDA has determined that such clearance or approval is not necessary. This laboratory is certified under the Clinical Laboratory Improvement Amendments of 1988 (CLIA) as qualified to perform high complexity clinical laboratory testing. Patient: Nallely Haney Age/Sex: 49/F MR#: [id number] Page 1 of 2 Surgical Pathology [id number] Electronically Signed By: Siena Chowdhury 09/05/24 [id number] Patient: Nallely Haney Age/Sex: 49/F MR#: [id number] Page 2 of 2 Assessment & Plan Assessment & Plan (1) Post-menopausal bleeding: Code(s): N95.0 - Postmenopausal bleeding Category: Medical Plan: Endometrial biopsy results as noted below. (2) Encounter to discuss test results: Code(s): Z71.2 - Person consulting for explanation of examination or test findings Plan: Discussed: Endometrial biopsy results as noted. Patient to be scheduled for a follow up endometrial biopsy range from 3-6 months. The patient expressed understanding and agreement with the plan of care. All of her questions and concerns were addressed to the best of my ability. (3) Encounter for IUD insertion: Code(s): Z30.430 - Encounter for insertion of intrauterine contraceptive device Plan: See procedure notes. Plan This note is constructed using voice recognition software. While every effort has been made to ensure accuracy, insurance sales representative errors may have been included. Coding Level of Care Code Procedure Only Diagnoses Post-menopausal bleeding N95.0 Encounter to discuss test results Z71.2 Encounter for IUD insertion Z30.430 CPT Codes Details - CPT: 38717-EHI Insertion ([id number])
== END 2024-10-09 08:48 | disposition home or self-care (01) ==
LOC: HO.HWS 08:07
PROVIDERS: PCP Internal Medicine; Visit Provider Advanced Practice Midwife
DX: Z30.430 Encounter for insertion of intrauterine contraceptive device (principal); N95.0 Postmenopausal bleeding
CPT/HCPCS: 58300

== ENCOUNTER → 2024-10-09 08:06 | Outpatient (BNVA) | payer OTHER, SELFPAY | PROVIDERS: PCP Internal Medicine; Visit Provider Advanced Practice Midwife | DX: Z30.430 Encounter for insertion of intrauterine contraceptive device (principal) | CPT/HCPCS: 58300 ==

== ENCOUNTER 2024-11-08 12:52 | Outpatient (REF) | payer OTHER, SELFPAY ==
--- NOTE | ~2024-11-08 | US_ITS ---
EXAMINATION: US PELVIS TRANSABDOMINAL AND TRANSVAGINAL HISTORY: N95.0 - Postmenopausal bleeding COMPARISON: Comparison is made with the prior examination dated 08/21/2024. TECHNIQUE: Transabdominal and endovaginal real-time 2D knowles-scale ultrasound was performed. FINDINGS: Uterus: The uterus is normal in size, measuring 8.0 x 3.6 x 3.3 cm. Myometrium has a normal echotexture. No fibroids are identified. Endometrium: The endometrial stripe measures 6 mm in thickness. An IUD is noted in the lower uterine segment. Right ovary: The right ovary is not visualized. Left ovary: The left ovary measures 1.4 x 1.1 x 1.2 cm. The left ovary is normal in size and echotexture. Pelvic fluid: none. US/US pelvic and transvaginal IMPRESSION: 1. IUD in the lower uterine segment. 2. The right ovary is not visualized. Electronically signed by: Bob Plunkett MD 11/08/2024 01:27 PM EDT
--- OUTSIDE RECORDS SUMMARY | 2024-11-08 13:26 | XMS_ITS | Clinical Summary ---
Author Organization [facility] [address] [place] [address] [place] [address] Phone Care Team Providers Care Bilingual Operator Name Role Phone Loreto Espitia MD Primary Care Provider [phone] Allergies Active Allergy Reactions Criticality Noted Date [...] 9:00 AM EDT Office Visit Adult Medicine [address] [phone] Loreto Espitia MD [address] [place] [id number] Health Maintenance Due Date Last Done Comments [...] Recently Relevant to Health Maintenance Care Teams Bilingual Operator Relationship Specialty Start Date End Date Loreto Espitia MD [address] [place] [id number] PCP - General Internal Medicine 03/16/21
== END 2024-11-08 12:53 | disposition home or self-care (01) ==
LOC: HO.US 12:52
PROVIDERS: PCP Internal Medicine; Visit Provider Advanced Practice Midwife
DX: Z30.431 Encounter for routine checking of intrauterine contraceptive device (principal); N95.0 Postmenopausal bleeding; R10.2 Pelvic and perineal pain
CPT/HCPCS: 76830; 76856

== ENCOUNTER → 2024-11-08 12:54 | Outpatient (BNV) | payer OTHER, SELFPAY | PROVIDERS: PCP Internal Medicine; Visit Provider Radiology Diagnostic Radiology | DX: N95.0 Postmenopausal bleeding (principal) | CPT/HCPCS: 76830; 76856 ==

== ENCOUNTER 2024-11-20 13:22 | Outpatient (AMB) | payer OTHER, SELFPAY ==
--- NOTE | 2024-11-20 14:01 | MHC.OFFVIS ---
Vital Signs 11/20/24 14:05 Height 5 ft Weight 133 lb BMI 26.0 BP 112/7 L Blood Pressure Location Rt brachial Position Sitting Intake Visit Reasons: IUD Check/?exchange Intake Note: take iud out and put iud in Tube Closing Machine Operator Required: No Information Interpreted: non-clinical & clinical Planning Division Superintendent: Planning Division Superintendent Present (Jayashree) Accompanied by: Self / Same As Patient Allergies No Known Allergies (No Known Allergies*) Allergy (Verified 11/20/24 14:07) Medication List - Last Reconciled 11/20/24 by Shirley Patel LPN citalopram 20 mg PO DAILY lorazepam 0.5 mg PO BEDTIME PRN Is last menstrual period known: No Do you need a note to return to daycare/school/sports/work: No HPI Comments Details: Patient is here today for a follow up IUD low-lying position for a Mirena exchange. 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 Reproductive History Menstrual Age of Menarche: 10 control method: progestin IUCD Date of menopause: 09/24/19 Total pregnancies: 2 Number of Living Children: 2 Review of Systems Const All systems reviewed & are unremarkable except as noted in HPI and below Physical Exam Vital Signs: Last Vital Signs BP 112/7 L 11/20/24 14:05 BMI result Body Mass Index 26.0 Const General: cooperative, healthy appearing and no acute distress Orientation/consciousness: patient oriented x3 GI Inspection: Yes normal to inspection Palpation (GI): Soft to palpation and Other GI palpation findings present (Nontender) Rectal Exam - Female: visual inspection normal General: Yes bladder normal to palpation External Female Exam: normal appearance of the urethra Speculum Exam - Vagina: normal appearance of the vagina, normal palpation, normal vaginal discharge and vaginal bleeding Speculum Exam - Cervix: normal appearance of the cervix, normal palpation and Other cervical findings present (IUD strings at the os) Bimanual exam- vagina & uterus: normal bimanual exam, normal palpation, uterine size normal, bladder normal to palpation, normal palpation, uterine shape normal and non-tender Bimanual Exam- Adnexa, other: normal adnexae OB/external & speculum: vaginal bleeding Neuro General: patient oriented x3 Office Procedures IUD Insert/Removal Details [id number] Insertion Procedure code (CPT) selection complete IUD Insert/Removal Details Details: The patient is here today for a Mirena IUD removal/ reinsertion. She was counseled on the side effects including: menstrual cycle changes, pain, infection, bleeding, or expulsion. A urine test was completed and was negative. She was consented for the IUD insertion and has signed the consent form. All questions were answered. The patient was placed in the dorsal lithotomy position. A speculum was inserted vaginally and the cervix and strings were visualized at the os. The cervix and vagina were cleansed with Betadine. A ring forcep was utilized, and the patient was asked to give a deep cough while the strings were grasped and gently tugged at the same time, removing the IUD device intact. A single toothed tenaculum was applied to the cervix for stabilization, and the uterus was sounded to 7 cm. The device was inserted and released with a gentle motion. Bleeding from the tenaculum sites and the procedure were minimal. The strings were trimmed to 3cm. All of the equipment was removed and the bimanual was normal, no tip was palpable at the cervical os. The patient tolerated the procedure well and left the office in good condition. Post IUD Insertion Care: There may be some post insertion bleeding for several days that is usually light and can turn to a light brown or pink in color. Mild cramping may occur. Nothing in the vagina including: tampons, douching or intimacy for several days. You may take an over the counter mild analgesia like Tylenol or Advil (if no allergies), per the manufacturers recommendations on dosing and frequency. Follow the directions completely. Call the office if any: fever (over 100.4), flu like symptoms, abdominal pain, worsening cramping not resolved with over the counter medications, foul smelling vaginal odor, signs of infected appearing discharge, or heavy bleeding. Use a condom for a back up method if indicated for 7 days. Always use a condom for STI prevention; IUD's are not protective against STD's. Return to the office in 4-6 weeks for IUD recheck. This note is constructed using voice recognition software. While every effort has been made to ensure accuracy, milling/polishing operator errors may have been included. [id number] Insertion 91841-GNS Removal Procedure code (CPT) selection complete Office Meds Mirena 21 mcg/24 hr (up to 8 years) 52 mg intrauterine device Performing Provider: Alison Levin CNM Performing Location: [facility] Administered by: TOBY Mcneil on 11/20/24 14:51 Dose Route Admin Location Dispensed Lot Number Expiration Date [facility] Licensed Tax Consultant 1 device intrauterine 1 device [id number] 01/11/27 61754-215-80 [employer] Total Dispensed Waste 1 device 0 % Assessment & Plan Assessment & Plan (1) Remove/insert IUD: Code(s): Z30.433 - Encounter for removal and reinsertion of intrauterine contraceptive device Plan: Plan endometrial biopsy on her follow up IUD check in 6 weeks, history of proliferative endometrium in post menopause biopsy for 1 year every 3 to six-month. Pre-procedure counseling provided. The patient expressed understanding and agreement with the plan of care. All of her questions and concerns were addressed to the best of my ability. Plan IUD removal and reinsertion of Mirena IUD completed. See procedure notes. This note is constructed using voice recognition software. While every effort has been made to ensure accuracy, milling/polishing operator errors may have been included. Orders: Orders AMB IUD Insertion/Removal - Practice Supplied Today N95.0 - Postmenopausal bleeding, Z30.430 - Encounter for insertion of intrauterine contraceptive device Coding Level of Care Code Procedure Only Diagnoses Remove/insert IUD Z30.433 CPT Codes Details - CPT: 35076-SLH Insertion ([id number]) Details - CPT: 95658-CMX Insertion ([id number]) Details - CPT: 93853-FQZ Removal ([id number])
[2024-11-20 14:05] VITALS: BP 112/7; BMI 26.0
--- OUTSIDE RECORDS SUMMARY | 2024-11-20 15:49 | XMS_ITS | Clinical Summary ---
Author Organization [facility] [address] [place] [address] [place] [address] Phone Care Team Providers Care Collar Runner Name Role Phone Loreto Espitia MD Primary Care Provider [phone] Allergies Active Allergy Reactions Criticality Noted Date [...] 9:00 AM EDT Office Visit Adult Medicine [address] [phone] Loreto Espitia MD [address] [place] [address] Health Maintenance Due Date Last Done Comments Breast Cancer Screening 1975 Hepatitis B Vaccines (1 of 3 - 19+ 3-dose series) 1992 Zoster Vaccines (1 of 2) 1992 Cervical Cancer Screening: P ap Smear 1994 HIV Screening 02/20/2022 Social Influencers of Health Screening 02/20/2022 Pneumococcal Vaccine: 50+ Years (1 of 1 - PCV) 07/20/2023 Depression Screening 03/14/2024 COVID-19 Vaccine (2024-2 6 season) 2024 03/27/2021, 05/23/2020, 05/03/2020 Influenza Vaccine (#1) 2024 [...] Recently Relevant to Health Maintenance Care Teams Collar Runner Relationship Specialty Start Date End Date Loreto Espitia MD [address] [place] [phone] PCP - General Internal Medicine 03/16/21
== END 2024-11-20 14:49 | disposition home or self-care (01) ==
LOC: HO.HWS 13:22
PROVIDERS: PCP Internal Medicine; Visit Provider Advanced Practice Midwife
DX: Z30.433 Encounter for removal and reinsertion of intrauterine contraceptive device (principal); N95.0 Postmenopausal bleeding
CPT/HCPCS: 58300; 58301

== ENCOUNTER → 2024-11-20 13:22 | Outpatient (BNVA) | payer OTHER, SELFPAY | PROVIDERS: PCP Internal Medicine; Visit Provider Advanced Practice Midwife | DX: N95.0 Postmenopausal bleeding (principal); Z30.433 Encounter for removal and reinsertion of intrauterine contraceptive device | CPT/HCPCS: 58300; 58301; J7298 ==

== ENCOUNTER 2025-01-15 09:34 | Outpatient (REF) | payer OTHER, SELFPAY ==
--- OUTSIDE RECORDS SUMMARY | 2025-01-15 11:53 | XMS_ITS | Clinical Summary ---
Author Organization [facility] Address [address] [place] [address] Care Team Providers Care Creative Resource Manager Name Role Phone Loreto Espitia MD Primary Care Provider [phone] Allergies Active Allergy Reactions Severity Noted Date Comments Bee Stings Anaphylaxis 03/22/2017 Medications Medication Sig Dispensed Refills Start Date End Date Status EPINEPHrine HCl, Anaphylaxis, (EPIPEN 2-MARK IM) Inject into the muscle. 0 Active citalopram (CELEXA) 20 MG tablet TAKE 1 TABLET BY MOUTH DAILY 90 Tab 1 02/18/2020 Active lorazepam (ATIVAN) 0.5 MG tablet TAKE 1 TABLET BY MOUTH AT BEDTIME NEEDED FOR INSOMNIA 0 11/25/2020 Active Active Problems Problem Noted Date Overweight (BMI 25.0-29.9) 01/02/2024 Cancer of skin, squamous cell 07/02/2021 Insomnia 04/21/2017 Anxiety and depression 03/22/2017 Resolved Problems Problem Noted Date Resolved Date Seborrheic keratosis 04/20/2019 06/21/2021 Overview: Follows with dermatology Breast calcification seen on mammogram 8 06/21/2021 Overview: Needs diagnostic mammograms, recent mammogram from March 2020 continues to show calcifications Other insomnia 03/22/2017 04/21/2017 Immunizations Name Administration Dates Next Due COVID-19 (Pfizer) 03/27/2021,05/23/2020,05/03/19 21 Tdap 06/28/2017 Family History Medical History Relation Name Comments Cirrhosis Brother x 1 +ETOH CA Esophageal Father CAD; +smoker Cancer of the Breast Maternal Grandmother ?age?laterality Hypercholesterolemia Mother Relation Name Status Comments Brother x 1 Alive Father Maternal Grandfather Maternal Grandmother Mother Alive Paternal Grandfather Paternal Grandmother Sister x 2 Alive Social History Tobacco Use Types Packs/Day Years Used Date Smoking Tobacco: Former Cigarettes Smokeless Tobacco: Never Tobacco Cessation:Counseling Given: Not Answered Comments:Started age 11; max 1 PPD; quit age 26 Alcohol Use Standard Drinks/Week Comments Not Currently 0 (1 standard drink = 0.6 oz pur e alcohol) Education Answer Date Recorded What is the highest level of school you have completed or the highest degree you have received? Associate degree: academic program 01/02/2024 Sex Assigned at Date Recorded Not on file Last Filed Vital Signs Vital Sign Reading Time Taken Comments Blood Pressure 110/68 07/02/2021 8:38 AM EDT Pulse 78 07/02/2021 8:38 AM EDT Temperature 36.3 C (97.3 F) 07/02/2021 8:38 AM EDT Respiratory Rate 16 07/02/2021 8:38 AM EDT Oxygen Saturation 98% 02/23/2021 1:33 PM EST Inhaled Oxygen Concentration - - Weight 65.8 kg (145 lb) 07/02/2021 8:38 AM EDT Height 152.4 cm (5') 01/02/2024 1:33 PM EDT Body Mass Index 28.32 07/02/2021 8:38 AM EDT Plan of Treatment Health Maintenance Due Date Last Done Comments CERVICAL CANCER SCREENING 1994 MAMMOGRAM 03/23/2022 03/23/2021, 04/14, 03/24/2020 (External Completion), Additional history exists SHINGLES VACCINE (1 of 2) 07/20/2023 BMI CHECK/ADVISE 03/14/2024 01/02/2024, , 02/23/2021 (Completed), Additional history exists DEPRESSION SCREENING/FOLLOWUP 03/14/2024, 02/23/2021, 02/18/2020, Additional history exists SOCIAL NEEDS SCREENING 03/14/2024 01/02/2024, 2018 Covid-19 Vaccine (4 2022-2 4 season) 2024 03/27/2021, 05/23/2020, 05/03/2020 INFLUENZA (#1) 2024 01/27/2019 (Refu sed), 04/26/2018 (Refused) BASELINE HEALTH EXAM 40-64 01/04/202601/04, 01/02/2024, 02/23/2021, Additional history exists DTAP/TDAP/TD (2 - Td or Tdap) 06/29/2027 06/28/2017, 06/28/2017 CHOLESTEROL SCREENING 01/04/2029 01/05/2024 , 01/24/2019, 07/07/2017, Additional history exists COLON CANCER SCREENING 12/11/2031 , 12/10/2021 (Completed) PNEUMOCOCCAL VACCINE FOR HIG H RISK PATIENTS (#1) 2038 HEPATITIS C SCREENING Completed 01/05/2024 Care Teams Creative Resource Manager Relationship Specialty Start Date End Date Loreto Espitia MD [address] [place] [phone] PCP - General Internal Medicine 03/16/21
--- OUTSIDE RECORDS SUMMARY | 2025-01-15 11:53 | XMS_ITS | Encounter Summary ---
Author Organization [facility] Address [address] [place] [address] Care Team Providers Care Health Care Sanitary Technician Name Role Phone Cecile Mahoney MD Primary Care Provider Unavail able Loreto Espitia MD Primary Care Provider [phone] Encounter Details Date Type Department Care Team Description 02/01/2019 Release of Information Medical Records [address] [place] [address] Abstract, Provider Social History Tobacco Use Types Packs/Day Years Used Date Smoking Tobacco: Former Cigarettes Q uit: 03/22/2002 Smokeless Tobacco: Never Alcohol Use Standard Drinks/Week Comments No 0 (1 standard drink = 0.6 oz pur e alcohol) Sex Assigned at Date Recorded Not on file documented as of this encounter Nursing Notes * Siena Sullivan - 02/01/2019 10:10 AM EST AUTHORIZATION TO OBTAIN RECORDS MAILED TO [facility]. documented in this encounter Plan of Treatment Not on file documented as of this encounter Visit Diagnoses Not on filedocumented in this encounter Care Teams Health Care Sanitary Technician Relationship Specialty Start Date End Date Cecile Mahoney MD PCP - General Internal Medicine 03/15/17 03/15/21 Loreto Espitia MD [address] [place] [address] [id number] PCP - General Internal Medicine 03/16/21 documented as of this encounter
--- OUTSIDE RECORDS SUMMARY | 2025-01-15 11:53 | XMS_ITS | Encounter Summary ---
Author Organization [facility] Address [address] [place] [address] Care Team Providers Care Chrome Cleaner Name Role Phone Loreto Espitia MD Primary Care Provider Encounter Details Date Type Department Care Team Description 03/26/2021 Orders Only Adult Medicine [address] [phone] Jessica Castañeda NP Breast calcification seen on mammogram Social History Tobacco Use Types Packs/Day Years Used Date Smoking Tobacco: Former Cigarettes Q uit: 03/22/2002 Smokeless Tobacco: Never Alcohol Use Standard Drinks/Week Comments No 0 (1 standard drink = 0.6 oz pur e alcohol) Sex Assigned at Date Recorded Not on file documented as of this encounter Plan of Treatment Not on file documented as of this encounter Procedures Procedure Name Priority Date/Time Associated Diagnosis Comments DIAGNOSTIC MAMMOGRAPHY WITH CAD UNILATERAL Routine 03/23/2021 Breast calcification seen on mammogram documented in this encounter Results * DIAGNOSTIC MAMMOGRAPHY WITH CAD UNILATERAL (03/23/2021) Jessica Castañeda NP MAMMOGRAPHY documented in this encounter Visit Diagnoses Diagnosis Breast calcification seen on mammogram Other (abnormal) findings on radiological examination of breast documented in this encounter Care Teams Chrome Cleaner Relationship Specialty Start Date End Date Loreto Espitia MD [address] [place] [phone] PCP - General Internal Medicine 03/16/21 documented as of this encounter
--- OUTSIDE RECORDS SUMMARY | 2025-01-15 11:53 | XMS_ITS | Encounter Summary ---
Author Organization [facility] Address [address] [place] [address] Care Team Providers Care Pattern Maker Name Role Phone Loreto Espitia MD Primary Care Provider [phone] Reason for Visit * Reason Onset Date Comments Medication 11/26/2021 Encounter Details Date Type Department Care Team Description 11/26/2021 Refill Gastroenterology - [address] [phone] Arlene Jacob MD Medication Social History Tobacco Use Types Packs/Day Years [...] on filedocumented in this encounter Care Teams Pattern Maker Relationship Specialty Start Date End Date Loreto Espitia MD [address] [place] [address] [phone] PCP - General Internal Medicine 03/16/21 documented as of this encounter
--- OUTSIDE RECORDS SUMMARY | 2025-01-15 11:53 | XMS_ITS | Encounter Summary ---
Author Organization [facility] Address [address] [place] [address] Care Team Providers Care Soil Analyst Name Role Phone Cecile Mahoney MD Primary Care Provider Unavail able Loreto Espitia MD Primary Care Provider [phone] Reason for Visit * Reason Comments E-prescribe Rx Request Encounter Details Date Type Department Care Team Description 09/26/2017 Refill Adult Medicine [address] [phone] Aimee Zapata PA-C E-prescribe Rx Request Social History Tobacco Use Types Packs/Day Years Used Date Smoking Tobacco: Former Cigarettes Q uit: 03/22/2002 Smokeless Tobacco: Never Alcohol Use Standard Drinks/Week Comments No 0 (1 standard drink = 0.6 oz pur e alcohol) Sex Assigned at Date Recorded Not on file documented as of this encounter Miscellaneous Notes * Telephone Encounter - Angeline Landon M.A. - 09/26/2017 3:04 PM EDT Lab Results Component Value Date NA 141 07/07/2017 K 4.5 07/07/2017 CO2 29.8 07/07/2017 CL 103 07/07/2017 BUN 10 07/07/2017 CREAT 0.8 07/07/2017 GLU 99 07/07/2017 CA 9.5 07/07/2017 GFR > 60 07/07/2017 Last ov with pcp 06/2017 pending ov with pcp * Telephone Encounter - Fremin Del Cid - 09/26/2017 11:42 AM EDT Patient would like script to be: E-PRESCRIBED/FAXED TO PHARMACY WHEN WAS THE PATIENT'S LAST APPOINTMENT IN ADULT MEDICINE? 06/28/17 WHEN WAS THE LAST TIME THE PATIENT SAW THEIR PCP? Same as above Does patient have an upcoming appointment? Yes 09/28/17 (THE MEDICATION REQUESTED IS ON THE MED LIST ABOVE) All of the medications requested were on the CURRENT MEDS list Did you check the Pharmacy information above?: YES Patient wants: 30 -day supply Is this a mail order prescription request ? NO If the refill is from a FAXED refill request what is the RX # listed on the fax? N/A Patients current insurance carrier is: Payor: [employer] [facility] / Plan: [employer] SILVER TYPE 2 / Product Type: HMO [id number] documented in this encounter Plan of Treatment Not on file documented as of this encounter Visit Diagnoses Not on filedocumented in this encounter Care Teams Soil Analyst Relationship Specialty Start Date End Date Cecile Mahoney MD PCP - General Internal Medicine 03/15/17 03/15/21 Loreto Espitia MD [address] [place] [id number] PCP - General Internal Medicine 03/16/21 documented as of this encounter
--- OUTSIDE RECORDS SUMMARY | 2025-01-15 11:53 | XMS_ITS | Encounter Summary ---
Author Organization [facility] Address [address] [place] [address] Care Team Providers Care Paint Spray Tender Name Role Phone Cecile Mahoney MD Primary Care Provider Unavail able Loreto Espitia MD Primary Care Provider Encounter Details Date Type Department Care Team Description 02/01/2019 Release of Information Medical Records [address] [place] [address] Abstract, Provider Social History Tobacco Use Types Packs/Day Years Used Date Smoking Tobacco: Former Cigarettes Q uit: 03/22/2002 Smokeless Tobacco: Never Alcohol Use Standard Drinks/Week Comments No 0 (1 standard drink = 0.6 oz pur e alcohol) Sex Assigned at Date Recorded Not on file documented as of this encounter Nursing Notes * Siena Sullivan - 02/01/2019 10:11 AM EST AUTHORIZATION TO OBTAIN RECORDS MAILED TO THE [facility]. documented in this encounter Plan of Treatment Not on file documented as of this encounter Visit Diagnoses Not on filedocumented in this encounter Care Teams Paint Spray Tender Relationship Specialty Start Date End Date Cecile Mahoney MD PCP - General Internal Medicine 03/15/17 03/15/21 Loreto Espitia MD [address] [place] [id number] PCP - General Internal Medicine 03/16/21 documented as of this encounter
--- OUTSIDE RECORDS SUMMARY | 2025-01-15 11:53 | XMS_ITS | Encounter Summary ---
Author Organization [facility] Address [address] [place] [address] Care Team Providers Care Gas Plant Repairer Name Role Phone Cecile Mahoney MD Primary Care Provider Unavail able Loreto Espitia MD Primary Care Provider [phone] Encounter Details Date Type Department Care Team Description 05/07/2020 Orders Only Adult Medicine [address] [id number] Cecile Mahoney MD Screening for breast cancer; Breast calcification seen on mammogram Social History [...] Procedure Name Priority Date/Time Associated Diagnosis Comments DX MAMMO INCL CAD BI Routine 04/23/2020 Screening for breast cancer Breast calcification seen on mammogram documented in this encounter Results * DX MAMMO INCL CAD BI (04/23/2020) Cecile Mahoney MD MAMMOGRAPHY documented in this encounter Visit Diagnoses Diagnosis Screening for breast cancer Breast screening, unspecified Breast calcification seen on mammogram Other (abnormal) findings on radiological examination of breast documented in this encounter Care Teams Gas Plant Repairer Relationship Specialty Start Date End Date Cecile Mahoney MD PCP - General Internal Medicine 03/15/17 03/15/21 Loreto Espitia MD [address] [place] [id number] PCP - General Internal Medicine 03/16/21 documented as of this encounter
--- OUTSIDE RECORDS SUMMARY | 2025-01-15 11:53 | XMS_ITS | Encounter Summary ---
Author Organization [facility] Address [address] [place] [address] Care Team Providers Care Learning And Development Officer Name Role Phone Cecile Mahoney MD Primary Care Provider Unavail able Loreto Espitia MD Primary Care Provider [phone] Encounter Details Date Type Department Care Team Description 07/29/2017 Transfer Records Medical Records [address] [place] [address] Abstract, Provider Social History Tobacco Use Types [...] on filedocumented in this encounter Care Teams Learning And Development Officer Relationship Specialty Start Date End Date Cecile Mahoney MD PCP - General Internal Medicine 03/15/17 03/15/21 Loreto Espitia MD [address] [place] [address] PCP - General Internal Medicine 03/16/21 documented as of this encounter
--- OUTSIDE RECORDS SUMMARY | 2025-01-15 11:53 | XMS_ITS | Encounter Summary ---
Author Organization [facility] Address [address] [place] [address] Care Team Providers Care Trackman Name Role Phone Cecile Mahoney MD Primary Care Provider Unavail able Loreto Espitia MD Primary Care Provider [phone] Encounter Details Date Type Department Care Team Description 04/14/2017 Dot Compliance Specialist Report Medical Records [address] [place], [place] [id number] Nate uHrley Social History Tobacco Use Types Packs/Day Years [...] on filedocumented in this encounter Care Teams Trackman Relationship Specialty Start Date End Date Cecile Mahoney MD PCP - General Internal Medicine 03/15/17 03/15/21 Loreto Espitia MD [address] [place] [id number] PCP - General Internal Medicine 03/16/21 documented as of this encounter
--- OUTSIDE RECORDS SUMMARY | 2025-01-15 11:53 | XMS_ITS | Encounter Summary ---
Author Organization [facility] Address [address] [place] [address] Care Team Providers Care Assembler Handbags Name Role Phone [place] Mahoney MD Primary Care Provider Unavail Loreto Oseguera MD Primary Care Provider [phone] Reason for Visit * Reason Onset Date Comments APPOINTMENT 10/17/2020 Encounter Details Date Type Department Care Team Description 10/17/2020 Telephone Adult [address] [address] Lake Mahoney MD APPOINTMENT Social History Tobacco Use Types Packs/Day Years Used Date Smoking Tobacco: Former Cigarettes Q uit: 03/22/2002 Smokeless Tobacco: Never Alcohol Use Standard Drinks/Week Comments No 0 (1 standard drink = 0.6 oz pur e alcohol) Sex Assigned at Date Recorded Not on file documented as of this encounter Miscellaneous Notes * Telephone Encounter - Marilyn Alba - 10/21/2020 4:18 PM EDT LEFT A MESSAGE TO SCHEDULE A FOLLOW UP WITH DR MAHONEY. * Telephone Encounter - Ann Au - 10/20/2020 10:18 AM EDT Pt returning call requests CB * Telephone Encounter - Hugo Wood R.N - 10/17/2020 2:47 PM EDT Pt called left voice message to return call. * Telephone Encounter - Lake Mahoney MD - 10/17/2020 12:29 PM EDT 15 is fine * Telephone Encounter - La Joyce L.P.N. - 10/17/2020 11:27 AM EDT Regarding encounter from yesterday, pt has not seen LAKE MAHONEY in 2 years Pt needs appt with pcp, would you like me to book a 15 minute or a 30 minute visit since she hasnt been seen in person in a couple years? Please address and advise. * Telephone Encounter - Nola Lundberg - 10/17/2020 9:50 AM EDT See encounter from 10/13/20. Patient is calling and [facility] that she needsto be seen by her PCP in order to have diagnostic mammogram. Please book appointment with Dr. Mahoney documented in this encounter Plan of Treatment Not on file documented as of this encounter Visit Diagnoses Not on filedocumented in this encounter Care Teams Assembler Handbags Relationship Specialty Start Date End Date Lake Mahoney MD PCP - General Internal Medicine 03/15/17 03/15/21 Loreto Espitia MD [address] [place] [id number] PCP - General Internal Medicine 03/16/21 documented as of this encounter
--- OUTSIDE RECORDS SUMMARY | 2025-01-15 11:54 | XMS_ITS | Encounter Summary ---
Author Organization [facility] Address [address] [place] [address] Care Team Providers Care Marketing Technology Specialist Name Role Phone Cecile Mahoney MD Primary Care Provider Unavail able Loreto Espitia MD Primary Care Provider [phone] Encounter Details Date Type Department Care Team Description 03/27/2020 Orders Only Adult [address] [id number] Cecile Mahoney MD Breast calcification seen on mammogram Social History [...] Associated Diagnosis Comments DX MAMMO INCL CAD UNI Routine 03/20/2020 Breast calcification seen on mammogram documented in this encounter Results * DX MAMMO INCL CAD UNI (03/20/2020) Cecile Mahoney MD MAMMOGRAPHY documented in this encounter Visit Diagnoses Diagnosis Breast calcification seen on mammogram Other (abnormal) findings on radiological examination of breast documented in this encounter Care Teams Marketing Technology Specialist Relationship Specialty Start Date End Date Cecile Mahoney MD PCP - General Internal Medicine 03/15/17 03/15/21 Loreto Espitia MD [address] [place] [id number] PCP - General Internal Medicine 03/16/21 documented as of this encounter
== END 2025-01-15 09:35 | disposition home or self-care (01) ==
LOC: HO.LNP 09:34
PROVIDERS: PCP Internal Medicine; Visit Provider Advanced Practice Midwife
DX: N95.0 Postmenopausal bleeding (principal)
CPT/HCPCS: 58100; 88305

== ENCOUNTER 2025-01-15 09:34 | Outpatient (AMB) | payer OTHER, SELFPAY ==
[2025-01-15 09:44] VITALS: BP 100/64
--- NOTE | 2025-01-15 09:44 | A.OFFVIS_ITS ---
Vital Signs 01/15/25 09:44 BP 100/64 Intake Visit Reasons: emb / iud check Trading Manager: Trading Manager Present (Angie) Allergies No Known Allergies (No Known Allergies*) Allergy (Verified 01/15/25 09:48) HPI Comments Details: Patient is here today for a follow up endometrial biopsy due to the history of postmenopausal bleeding, prior endometrial biopsy resulted in proliferative tissue. Currently has a Mirena IUD in place. 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 Menstrual Age of Menarche: 10 Date of menopause: 09/24/19 Review of Systems Const All systems reviewed & are unremarkable except as noted in HPI and below Physical Exam Vital Signs: Last Vital Signs BP 100/64 01/15/25 09:44 Const General: cooperative, healthy appearing and no acute distress Orientation/consciousness: patient oriented x3 GI Inspection: Yes normal to inspection Palpation (GI): Soft to palpation and Other GI palpation findings present (Nontender) Rectal Exam - Female: visual inspection normal General: Yes bladder normal to palpation External Female Exam: normal appearance of the urethra Speculum Exam - Vagina: normal appearance of the vagina, normal palpation and normal vaginal discharge Speculum Exam - Cervix: normal appearance of the cervix, normal palpation and Other cervical findings present (IUD strings at the os) Bimanual exam- vagina & uterus: normal bimanual exam, normal palpation, uterine size normal, bladder normal to palpation, normal palpation, uterine shape normal and non-tender Bimanual Exam- Adnexa, other: normal adnexae Neuro General: patient oriented x3 Office Procedures Endometrial Biopsy Details: The patient is here today for an endometrial biopsy due to postmenopausal bleeding with a history of proliferative tissue sampling with prior EMB. to rule out any pathology including atypical, hyperplasia or cancer cells of the uterus. She was counseled regarding anticipatory guidance for the procedure including the risks for pain, infection, bleeding, perforation, potential injury to the tissues may include the cervix, uterus, tubes, bladder and bowels. These injuries may include further treatment and evaluation including surgery, blood transfusions, antibiotics, hospitalizations and anesthesia. Permanent injury and scarring can occur. She was consented for the procedure, and the consent forms were signed. She is agreeable to have the procedure today. All questions were answered. Endometrial Biopsy Procedure: The patient was placed in the dorsal lithotomy position and a sterile speculum inserted. Using aseptic technique for the procedure. The cervix was cleansed with Betadine x 3 swabs. A single toothed tenaculum was placed on the cervix for stabilization and the uterus was sounded to 7 cm with a 4mm pipelle, and tissue sample obtained. Minimal bleeding was observed. The tissue sample was placed in formalin in a patient labeled container by staff assisting and sent to the pathology department for processing and interpretation. The patient tolerate the procedure well and was in good condition when leaving the department. Endometrial Biopsy Post Procedure Care: Nothing in the vagina including: tampons, douching or intimacy until all the bleeding has subsided. There may be some post procedure bleeding for several days, this bleeding is usually light and may turn to a light brown or pink color. Mild cramps may occurs. Nothing in the vaginal including: tampons, douching, or intimacy until all the bleeding has subsided. You may take an over the counter mild analgesic such as Tylenol or Advil (if no allergies) per the manufactures recommendation on dosing, frequency, and follow the directions completely. Call the office if any: fever (over 100.4), flu like symptoms, abdominal pain (worse than cramping), foul smelling, infected appearing vaginal discharge, or heavy bleeding. If indicated: Use condoms to prevent and STI's, and only after the bleeding has stopped completely. Return to the office in 2 weeks for results and plan of care. This note is constructed using voice recognition software. While every effort has been made to ensure accuracy, hotel registration clerk errors may have been included. [id number] Biopsy Assessment & Plan Assessment & Plan (1) Post-menopausal bleeding: Comment: EMB: proliferative, Mirena placed. Biopsy q 3-6months x1yr. Code(s): N95.0 - Postmenopausal bleeding Category: Medical Plan See EMB procedure notes. Await results for final plan of care. Schedule next endometrial biopsy appointment for May of 2025. The patient expressed understanding and agreement with the plan of care. All of her questions and concerns were addressed to the best of my ability. This note is constructed using voice recognition software. While every effort has been made to ensure accuracy, hotel registration clerk errors may have been included. Orders: Orders Surgical Today N95.0 - Postmenopausal bleeding Coding Level of Care Code Procedure Only Diagnoses Post-menopausal bleeding N95.0 CPT Codes Endometrial Biopsy - CPT: 21813-Mawskwjdybw Biopsy ([id number])
--- OUTSIDE RECORDS SUMMARY | 2025-01-15 10:48 | XMS_ITS | Encounter Summary ---
Author Organization [facility] Address [address] [place] [address] Care Team Providers Care Fur Repair Inspector Name Role Phone Loreto Espitia MD Primary Care Provider [phone] Encounter Details Date Type Department Care Team ([facility] st Contact Info) Description 01/07/2025 Results Follow-Up Adult Medicine [facility] [address], [place] [phone] Loreto Espitia MD [address] [place], [place] Social History Tobacco Use Types Packs/Day Years Used Date Smoking Tobacco: Former Smokeless Tobacco: Never Alcohol Use Standard Drinks/Week Comments Not Currently 0 (1 standard drink = 0.6 oz pur e alcohol) Housing Instability Answer Date Recorde d Are you worried that in the next 2 months you may not have stable housing? No 12/31/2024 Food Access & Nutrition Answer Date Rec orded Do you have access to a vari ety of food including fruits and vegetables? Yes 12/31/2024 Access to Healthcare Answer Date Record ed Within the last 3 months, ho w many times did you visit the emergency department for your medical care? 0 12/31/2024 Health Literacy Answer Date Recorded How often do you need to hav e someone help you when you read instructions, pamphlets, or other written material from your doctor or pharmacy? Never 12/31/2024 Caregiver: How often do you need to have someone help you when you read instructions, pamphlets, or other written material from your doctor or pharmacy? Not on file 12/31/2024 Financial Risk Answer Date Recorded How hard is it for you to pa y for the very basics like food, housing, medical care, and air conditioning / heating? Not very hard 12/31/2024 Transportation Answer Date Recorded Has the lack of transportati on kept you from meetings, work, or from getting things needed for daily living? No Has the lack of transportati on kept you from medical appointments or from getting medications? No 12/31/2024 Social Isolation Answer Date Recorded How often do you feel lonely or isolated from th ose around you? Never 12/31/2024 Food Risk Answer Date Recorded Within the past 12 months we worried whether our food would run out before we got money to buy more. Never true 12/31/2024 Within the past 12 months th e food we bought just didn't last and we didn't have money to get more. Never true 12/31/2024 Dependent Care Answer Date Recorded Do you need help finding or paying for care for your loved ones. For example, child care assistant or elderly care for an older adult? No 12/31/2024 Education Answer Date Recorded Do you think completing more education or training, like finishing a GED, going to college, or learning a trade, would be helpful for you? No 12/31/2024 Employment and Income Answer Date Recor ded During the last four weeks, have you been actively looking for work? No 12/31/2024 Living Situation Answer Date Recorded What is your living situation? Unrecognized valu e 12/31/2024 Comments Unknown Sex and Gender Information Value Date Recorded Sex Assigned at Not on file Legal Sex Female 9:34 AM EST Gender Identity Not on file Sexual Orientation Not on file documented as of this encounter Plan of Treatment Upcoming Encounters Date Type Department Care Team (Late st Contact Info) Description 01/13/2026 9:00 AM EST Office Visit Adult Medicine [facility] [address], [place] [phone] Loreto Espitia MD [address] [place], [place] documented as of this encounter Visit Diagnoses Not on filedocumented in this encounter Additional Health Concerns Assessment Noted Time PHQ-9 Depression Total Score: 1 01/01/20 25 10:27 AM EDT documented as of this encounter Care Teams Fur Repair Inspector Relationship Specialty Start Date End Date Loreto Espitia MD [address] [place] [address] PCP - General Internal Medicine 03/16/21 documented as of this encounter
--- OUTSIDE RECORDS SUMMARY | 2025-01-15 10:48 | XMS_ITS | Clinical Summary ---
Author Organization [facility] [address] [place] [address] Address [address] [place], [place] Phone Care Team Providers Care Electro Mechanical Technologist Name Role Phone Loreto Espitia MD Primary Care Provider [phone] Allergies Active Allergy Reactions Criticality Noted Date [...] Date Diagnosed Date Overweight (BMI 25.0-29.9) 01/02/2024 History of SCC (squamous cell carcinoma) of skin 07/02/2021 Insomnia 04/21/2017 Anxiety and depression 03/22/2017 Encounters Date Type Department Care Team Description 01/07/2025 9:00 AM EDT Office Visit [address] [phone] Loreto Espitia MD Routine general medical examination at a health care facility (Primary Dx); Anxiety and depression 01/07/2025 Results Follow-Up Adult [address] [phone] Loreto Espitia MD from Last 3 Months Immunizations Immunization Administration Dates Next Due Tdap Tetanus diptheria acell ular pertussis (Boostrix; Adacel) 7yo and older 06/28/2017 Surgical History Surgery Date Site/Laterality Comments COLONOSCOPY 12/10/2021 negative Medical History Medical History Date Comments Anxiety and depression Insomnia 04/21/2017 History of SCC (squamous cell carcinoma) of skin 07/02/2021 Family History Medical History Relation Name Comments Cirrhosis Brother x 1 +ETOH Esophageal cancer Father CAD; +smok er Breast cancer Maternal Grandmother Hyperlipidemia Mother Relation Name Status Comments Brother x 1 Alive Father Maternal Grandfather Maternal Grandmother Mother Alive Paternal Grandfather Paternal Grandmother Social History Tobacco Use Types Packs/Day Years Used Date Smoking Tobacco: Former Smokeless Tobacco: Never Tobacco Cessation:Counseling Given: Not Answered Alcohol Use Standard Drinks/Week Comments Not Currently [...] care for your loved ones. For example, childhood development teacher or elderly care for an older adult? [...] Sign Reading Time Taken Comments Blood Pressure 98/58 01/07/2025 9:05 AM EDT Pulse 67 01/07/2025 9:05 AM EDT Temperature 35.7 C (96.2 F) 01/07/2025 9:05 AM EDT Respiratory Rate 14 01/07/2025 9:05 AM EDT Oxygen Saturation 99% 01/07/2025 9:05 AM EDT Inhaled Oxygen Concentration - - Weight 59.2 kg (130 lb 9.6 oz) 01/07/2025 9:05 A M EDT Height 152.4 cm (5') 01/07/2025 9:05 AM EDT Body Mass Index 25.51 01/07/2025 9:05 AM EDT Plan of Treatment Upcoming Encounters Date Type Department Care Team (Late st Contact Info) Description 01/13/2026 9:00 AM EST Office Visit Adult Medicine [facility] [address] [place], [place] [phone] Loreto Espitia MD [address] [place], [place] Health Maintenance Due Date Last Done Comments Breast Cancer Screening 1973 Hepatitis B Vaccines (1 of 3 - 19+ 3-dose series) 1992 Zoster Vaccines (1 of 2) 1992 Cervical Cancer Screening: P ap Smear 1994 HIV Screening 02/20/2022 Pneumococcal Vaccine: 50+ Years (1 of 1 - PCV) 07/20/2023 COVID-19 Vaccine (4 - 2024-2 6 season) 2024 03/27/2021, 05/23/2020, 05/03/2020 Influenza Vaccine (#1) 2024 Social Influencers of Health Screening 12/31/2025 12/31/2024 DTaP,Tdap,and Td Vaccines (2 - Td or Tdap) 06/29/2027 06/28/2017 Cholesterol Screening (Lipid Panel) 01/04/2029 01/05/2024, 01/05/2024 Colorectal Cancer Screening: Colonoscopy 12/12/2031 12/10/2021 RSV Immunization Adult Patients (1 - 1-dose 75+ series) 2048 Hepatitis C Screening Completed 01/05/2024 Depression Screening Completed 12/31/2024 HIB Vaccines Aged Out No longer eligi [...] Procedure Name Priority Date/Time Associated Diagnosis Comments CBC WITH AUTO DIFFERENTIAL Routine 01/07/2025 9:45 AM EDT Routine general medical examination at a health care facility CBC AND DIFFERENTIAL Routine 01/07/2025 9:45 AM EDT Routine general medical examination at a health care facility BASIC METABOLIC PANEL Routine 01/07/2025 9:45 AM EDT Routine general medical examination at a [facility] facility HEPATITIS C SCREENING Routine 01/05/2024 LIPID PANEL Routine 01/05/2024 HM COLONOSCOPY Routine 12/10/2021 from Last 3 Months or Most Recently Relevant to Health Maintenance Results * (ABNORMAL) CBC auto differential (01/07/2025 9:45 AM EDT) [facility] WBC 5.9 4.8 - 10.8 K/mcL LAB HEMETOLOGY METHOD 01/07/2025 12:54 PM EDT [facility] RBC 4.40 3.80 - 4.80 M/mcL LAB HEMETOLOGY METHOD 01/07/2025 12:54 PM EDT [facility] Hemoglobin 12.7 11.5 - 16.0 g/dL LAB HEMETOLOGY METHOD [facility]/07[facility]25 [facility] Hematocrit 39.8 35.0 - 47.0 % LAB HEMETOLOGY METHOD 01/07/2025 12:54 PM EDT [facility] MCV 90.7 79.0 - 98.0 FL LAB HEMETOLOGY METHOD 01/07/2025 12:54 PM EDT [facility] MCH 28.9 27.0 - 32.0 pcg LAB HEMETOLOGY METHOD 01/07/2025 12:54 PM [facility] MCHC 31.9(L) 32.0 - 37.0 g/dL LAB HEMETOLOGY METHOD 01/07/2025 12:54 PM T [facility] RDW 12.5 11.0 - 15.0 % LAB HEMETOLOGY METHOD 01/07/2025 12:54 PM [facility] Platelets 274 130 - 400 K/mcL LAB HEMETOLOGY METHOD 01/07/2025 12:54 PM [facility] MPV 10.0 7.0 - 11.0 FL LAB HEMETOLOGY METHOD 01/07/2025 12:54 PM [facility] NRBC 0.0 <1.0 % LAB HEMETOLOGY METHOD 01/07/2025 12:54 PM [facility] NRBC Absolute 0.00 <0.10 K/mcL LAB HEMETOLOGY METHOD 01/07/2025 12:54 PM [facility] Neutrophils Relative 63.2 % LAB HEMETOLOGY METHOD 01/07/2025 12:54 PM [facility] Lymphocytes Relative 29.3 % LAB HEMETOLOGY METHOD 01/07/2025 12:54 PM [facility] Monocytes Relative 5.7 % LAB HEMETOLOGY METHOD 01/07/2025 12:54 PM [facility] Eosinophils Relative 0.8 % LAB HEMETOLOGY METHOD 01/07/2025 12:54 PM [facility] Basophils Relative 0.7 % LAB HEMETOLOGY METHOD 01/07/2025 12:54 PM [facility] Immature Granulocytes Relative 0.3 % LAB HEMETOLOGY METHOD 01/07/2025 12:54 PM [facility] Neutrophils Absolute 3.75 1.50 - 7.00 K/mcL LAB HEMETOLOGY METHOD 01/07/2025 12:54 PM [facility] Lymphocytes Absolute 1.74 1.00 - 5.00 K/mcL LAB HEMETOLOGY METHOD 01/07/2025 12:54 PM [facility] Monocytes Absolute 0.34 0.20 - 1.00 K/mcL LAB HEMETOLOGY METHOD 01/07/2025 12:54 PM EDT [facility] Eosinophils Absolute 0.05 0.00 - 0.50 K/[facility] LAB HEMETOLOGY METHOD 01/07/2025 12:54 PM EDT [facility] Basophils Absolute 0.04 0.00 - 0.20 K/[facility] LAB HEMETOLOGY METHOD 01/07/2025 12:54 PM EDT [facility] Immature Granulocytes Absolute 0.02 0.00 - 0.03 K/[facility] LAB HEMETOLOGY METHOD 01/07/2025 12:54 PM EDT [facility] Blood Venous blood specimen / Unknown Venipuncture / Unknown 01/07/2025 9:45 AM EDT 01/07/2025 9:45 AM EDT us Loreto Espitia MD LAB BLOOD ORDERABLES Final Resul t [facility] [address] [place] [address], [place] [phone] * Basic metabolic panel (01/07/2025 9:45 AM EDT) Sodium 138 133 - 145 mmol/L LAB CHEMISTRY METHOD 01/07/2025 2:28 PM [facility] Potassium 3.9 3.5 - 5.5 mmol/L LAB CHEMISTRY METHOD 01/07/2025 2:28 PM [facility] Chloride 105 96 - 110 mmol/L LAB CHEMISTRY METHOD 01/07/2025 2:28 PM [facility] CO2 26 21 - 32 mmol/L LAB CHEMISTRY METHOD 01/07/2025 2:28 PM [facility] Anion Gap 7 3 - 11 LAB CHEMISTRY METHOD 01/07/2025 2:28 PM EDT [facility] Glucose 99 70 - 100 mg/dL LAB CHEMISTRY METHOD 01/07/2025 2:28 PM EDT [facility] BUN 17 5 - 25 mg/dL LAB CHEMISTRY METHOD 01/07/2025 2:28 PM EDT [facility] Creatinine 0.81 0.50 - 1.10 mg/dL LAB CHEMISTRY METHOD 01/07/2025 2:28 PM EDT [facility] eGFR 88 >=60 mL/min/1. 73m2 LAB CHEMISTRY METHOD 01/07/2025 2:28 PM EDT [facility] Comment:Calculation based on the Chronic Kidney Disease Epidemiology Collaboration (CKD-EPI) equation refit without adjustment for race. BUN/Creatinine Ratio 21.0 LAB CHEMISTRY METHOD 01/07/2025 2:28 PM EDT [facility] Calcium 9.7 8.5 - 10.5 mg/dL LAB CHEMISTRY METHOD 01/07/2025 2:28 PM EDT [facility] Blood Venous blood specimen / Unknown Venipuncture / Unknown 01/07/2025 9:45 AM EDT 01/07/2025 9:45 AM EDT us Loreto Espitia MD LAB BLOOD ORDERABLES Final Resul t [facility] [address] [place] [address], * Hepatitis C Screening (01/05/2024) Pathologist [facility] Hepatitis C Screening abstracted Historical Provider HEALTH MAINTENANCE Final Result * (ABNORMAL) Lipid panel (01/05/2024) LDL/HDL Ratio 2 0 - 4 Triglycerides 39 0 - 150 mg/dL Cholesterol 198 0 - 200 mg/dL HDL 90 >=40 mg/dL LDL Cholesterol 101(A) 0 - 100 mg/dL Blood Venous blood specimen / Unknown Historical Eleni [facility] LAB BLOOD ORDERABLES Afia l Result * Colonoscopy (12/10/2021) Colonoscopy abstracted, no interpretation Anatomical Region Laterality Modality Other Historical Provider HEALTH MAINTENANCE Final Result from Last 3 Months or Most Recently Relevant to Health Maintenance Insurance [facility] [employer] Care Teams Electro Mechanical Technologist Relationship Specialty Start Date End Date Loreto Espitia MD [address] [place] [address] PCP - General Internal Medicine 03/16/21
== END 2025-01-15 10:22 | disposition home or self-care (01) ==
LOC: HO.HWS 09:34
PROVIDERS: PCP Internal Medicine; Visit Provider Advanced Practice Midwife
DX: N95.0 Postmenopausal bleeding (principal)
CPT/HCPCS: 58100